=== PATIENT | male | born 1955 | race Native Hawaiian/Other Pacific Islander ===

== ENCOUNTER 2018-07-18 09:38 | Outpatient (CLI) | payer MEDICARE | END 2018-07-18 09:39 | disposition home or self-care (01) | LOC: RAD 09:38 ==

== ENCOUNTER 2018-07-26 11:21 | Inpatient (IN) | payer MEDICARE, OTHER ==
[2018-07-26 11:38] VITALS: BMI 24.9
--- NOTE | 2018-07-26 11:58 | EDPD ---
HPI Stroke - General Time Seen by Provider: 07/26/18 11:51 Chief Complaint: Weakness/Neurological Deficit Historian: Patient, Spouse () - History of Present Illness Narrative History of Present Illness (Free Text): 07/26/18 11:58 A 63 year old male, whose past medical history includes a stroke 3 1/2 years ago- on blood thinners, hypertension, and diabetes, presents to the emergency department for possible stroke with symptoms starting from 6:30 am when the patient woke up. Patient reports experiencing numbness and weakness to his entire right leg, he also states his left leg and both arm sensations are intact. Patient's states he is taking Plavix and aspirin but patient reports he did not take any medication today. Patient denies any chest pain, headache, or any other complaints. PMD: Dr. Bee Onset:: Hours (5-6 hours ago) Timing: Currently Symptomatic Context: Home Associated Symptoms: Dysarthria (mild disarthria), Numbness (numbness to the entire right leg) rTPA Inclusion/Exclusion - Refusal of Treatment Patient Refused Treatment: No - Inclusion Criteria for Altepase Patient is 18 years or Older: Yes The Clinical Diagnosis of Ischemic Stroke That is Causing a Potentially Disabl ing Neurological Deficit: Yes Time of Onset is Well Established to be Less Than 270 Minute Before Treatment Would Begin: No Risk/Benefit Discussed With Patient/Family Member Present: No Past Medical History - Provider Review Nursing Documentation Reviewed: Yes - Infectious Disease Hx of Infectious Diseases: None - Tetanus Immunization Tetanus Immunization: Unknown - Cardiac Hx Cardiac Disorders: Yes Hx Hypertension: Yes Hx Peripheral Vascular Disease: Yes Other/Comment: PAD. - Pulmonary Hx Respiratory Disorders: No - Neurological Hx Neurological Disorder: Yes HX Cerebrovascular Accident: Yes (JANUARY 2015 RIGHT SIDED WEAKNESS SLOW SPEECH) - HEENT Hx HEENT Disorder: Yes Hx Cataracts: Yes - Renal Hx Renal Disorder: Yes (RENAL INSUFFICIENCY) - Endocrine/Metabolic Hx Endocrine Disorders: Yes Hx Diabetes Mellitus Type 2: Yes - Hematological/Oncological Hx Blood Disorders: No - Integumentary Hx Dermatological Disorder: No - Musculoskeletal/Rheumatological Hx Musculoskeletal Disorders: Yes Other/Comment: back surgery 07/22/13 for "spasms". "not sure what they did" - Gastrointestinal Hx Gastrointestinal Disorders: Yes Hx Constipation: Yes - Genitourinary/Gynecological Hx Genitourinary Disorders: No - Psychiatric Hx Psychophysiologic Disorder: No Hx Substance Use: No - Surgical History Hx Tonsillectomy: Yes Other/Comment: back surgery 07/22/13 for "spasms". "not sure what they did" - Anesthesia Hx Anesthesia: Yes Hx Anesthesia Reactions: No Hx Malignant Hyperthermia: No - Suicidal Assessment Feels Threatened In Home Enviroment: No Family/Social History - Dr. Cage Nursing documentation reviewed.: Yes Allergies/Home Meds Allergies/Adverse Reactions: Allergies No Known Allergies Allergy (Verified 07/26/18 12:10) Home Medications: Home Meds Medication Instructions Recorded Confirmed Glimepiride [Amaryl] 4 mg PO DAILY 12/01/14 04/19/15 Carvedilol 6.25 mg PO BID 04/15/15 04/19/15 Clopidogrel [Plavix] 75 mg PO DAILY 04/15/15 04/19/15 Famotidine 40 mg PO DAILY 04/15/15 04/19/15 Gemfibrozil 600 mg PO BID 04/15/15 04/19/15 Insulin Detemir [Levemir] 30 units SC ACBD 04/15/15 04/19/15 Lisinopril 10 mg PO DAILY 04/15/15 04/19/15 Sitagliptin Phosphate [Januvia] 100 mg PO DAILY 04/15/15 04/19/15 Review of Systems - Physician Review All systems were reviewed & negative as marked: Yes - Review of Systems Cardiovascular: absent: Chest Pain Neurological: Other (weakness and numbness to the entire right leg). absent: Headache ED Stroke Physical Exam - Physical Exam Narrative Physical Exam (Text): 07/26/18 12:07 Gen: VS reviewed, alert, well developed, well nourished, nontoxic, mild distress, mild dysarthria (chronic form a previous stroke). ENT: normal pharynx. Eye: EOMI, PERRL. Neck: no JVD, supple, no adenopathy. CV: regular rate, regular rhythm, no rubs, no murmur, no gallops, S1, S2, pulses equal and strong. Pulm: no distress, clear to auscultation, no wheeze, no rhonchi, breath sounds equal, no rales. Abd: soft, nontender, no guarding, no rebound, no rigidity, normal bowel sounds. Ext: no edema. Skin: good color, no rash, no cyanosis. Psych: responds appropriately to questions, normal affect. Neuro: oriented x 3, CN2-12 intact grossly, motor intact, sensation and numbness to entire right leg. Vital Signs Reviewed: Yes Vital Signs Temp Pulse Resp BP Pulse Ox 07/26/18 11:21 98.3 F 102 H 18 143/86 100 Temperature: Afebrile Blood Pressure: Normal Pulse: Tachycardic Respiratory Rate: Normal Appearance: Positive for: Well-Appearing, Non-Toxic Pain Distress: None Mental Status: Positive for: Alert and Oriented X 3 Medical Decision Making ED Course and Treatment: 07/26/18 12:12 Impression: 63 year old male presenting to the emergency room for a possible stroke. Plan: -- Type and screen -- CT of Head without contrast -- EKG -- Labs -- Stroke team consult -- CBC -- COAGs -- Chest X-ray -- IV fluids -- Reassess and disposition Prior Visits: Notes and results from previous visits were reviewed. Progress Notes: 07/26/18 11:57 CODE STROKE was called. 07/26/18 12:[address] Bernstein, who agrees patient is not a thrombolasis candidate and will see patient in consultation. 07/26/18 13:11 patient failed swallow eval in the ED as per nurse. this appears to be new especially since the patient is already on a significant amount of oral medications. admit accepted by dr. bee, patient to be admitted for acute neuro deficit concerning for cva. ddx including but not limited to cva, lumbar radiculopathy with numbness howevere would be unlikley in this clinical presentation as there is a uniform numbness of the lower extremity. Arterial occlusion is also unlikely as there are good peripheral pulses, good color to the entire legs, lack of pain. - RAD Interpretation Narrative RAD Interpretations (Text): 07/26/18 12:53 Procedure: CT of Head without contrast Dictator: Julian Phillips MD Impression: No intracranial mass, hemorrhage or evidence of acute infarct. Multifocal stable encephalomalacia consistent with prior infarcts. Chronic white matter ischemic change. Findings in this examination were discussed by telephone with Dr. Valentin at 12:27 p.m. on 07/26/2018. 07/26/18 12:59 Procedure: Chest X-ray Dictator: Julian Phillips Impression: No active disease. Scrap Wheeler: Radiologist - EKG Interpretation EKG Interpretation (Text): 07/26/18 14:59 1213: nsr at 98 bpm, nml qrs, nml axis, nonspecific t wave abn Interpreted by ED Physician: Yes - Scribe Statement The provider has reviewed the documentation as recorded by the Rosa Camara All medical record entries made by the Scribe were at my direction and personally dictated by me. I have reviewed the chart and agree that the record accurately reflects my personal performance of the history, physical exam, medical decision making, and the department course for this patient. I have also personally directed, reviewed, and agree with the discharge instructions and disposition. [ NIHSS Scale ([place]) Time Performed: 13:15 - How Severe is the Stoke Baseline Level of Consciousness: 0=Alert LOC to Questions: 0=Both comments correct LOC to commands: 0=Obeys both correctly Best Gaze: 0=Normal Visual: 0=No visual loss Facial: 0=Normal Motor Arm - Left: 0=No drift Motor Arm - Right: 0=No drift Motor Leg - Left: 0=No drift Motor Leg - Right: 0=No drift Limb Ataxia: 0=Absent Sensory: 1=Mild to moderate loss Best Language: 0=No aphasia Dysarthia: 1=Mild to moderate slurring Extinction & Inattention (Neglect): 0=Normal, no object Score: 2 Risk Level: Minor Stroke Risk Disposition/Present on Arrival - Present on Arrival Any Indicators Present on Arrival: No History of DVT/PE: No History of Uncontrolled Diabetes: No Urinary Catheter: No History of Decub. Ulcer: No History Surgical Site Infection Following: None - Disposition Have Diagnosis and Disposition been Completed?: Yes Diagnosis: CVA (cerebral vascular accident) Disposition: HOSPITALIZED Disposition Time: 13:19 Patient Plan: Admission Patient Problems: Current Active Problems Problem Status Onset CVA (cerebral vascular accident) Acute Condition: GUARDED
[2018-07-26] MEDS: Sodium Chloride 0.9% 1,000 ML IV SCH ×2 (12:25→22:09)
--- NOTE | 2018-07-26 12:35 | CT ---
Date of service: 07/26/2018 PROCEDURE: CT HEAD WITHOUT CONTRAST. HISTORY: Code Stroke COMPARISON: 05/23/2018. TECHNIQUE: Axial computed tomography images were obtained through the head/brain without intravenous contrast. Radiation dose: Total exam DLP = 945.92 mGy-cm. This CT exam was performed using one or more of the following dose reduction techniques: Automated exposure control, adjustment of the mA and/or kV according to patient size, and/or use of iterative reconstruction technique. FINDINGS: HEMORRHAGE: No intracranial hemorrhage. BRAIN: No intracranial mass. Multifocal encephalomalacia consistent with old infarct. Unchanged from prior CT examination. Bilateral multifocal cerebellar, right greater than left. Bilateral occipital, right greater than left. Right temporal. Bilateral small old basal ganglia lacunar infarcts. Old right thalamic lacunar infarct. No evidence of acute infarct. Patchy deep and subcortical white matter lucency consistent with chronic microvascular ischemic change. Mild chronic periventricular white matter ischemic change. VENTRICLES: No hydrocephalus. Incidentally noted cavum septum pellucidum. CALVARIUM: Unremarkable. PARANASAL SINUSES: Unremarkable as visualized. No significant inflammatory changes. MASTOID AIR CELLS: Unremarkable as visualized. No inflammatory changes. OTHER FINDINGS: None. IMPRESSION: No intracranial mass, hemorrhage or evidence of acute infarct. Multifocal stable encephalomalacia consistent with prior infarcts. Chronic white matter ischemic change. Findings in this examination were discussed by telephone with Dr. Valentin at 12:27 p.m. on 07/26/2018.
[2018-07-26 12:36] LABS: BASO # 0.04 K/mm3 (0.0-2.0); BASO % 0.4 % (0.0-3.0); EOS # 0.2 (0.0-0.7); EOS % 2.5 % (1.5-5.0); GRAN # 6.73 (1.4-6.5); HEMOGLOBIN 15.9 g/dL (14.0-18.0); LYMPH # 1.8 (1.2-3.4); MEAN CELL VOLUME 86.5 fl (80.0-105.0); MEAN CORPUSCULAR HEMOGLOBIN 27.9 pg (25.0-35.0); MEAN CORPUSCULAR HGB CONC 32.3 g/dl (31.0-37.0); MEAN PLATELET VOLUME 10.6 fl (7.0-11.0); MONO # 0.5 (0.1-0.6); MONO % 5.1 % (1.0-6.0); RBC 5.69 10^6/uL (3.5-6.1); RED CELL DISTRIBUTION WIDTH 13.7 % (11.5-14.5); WHITE BLOOD COUNT 9.2 10^3/uL (4.5-11.0)
[2018-07-26 12:46] LABS: INR 0.97; PARTIAL THROMBOPLASTIN TIME 34.7 Seconds (25.1-36.5); PROTHROMBIN TIME 11.1 SECONDS (9.4-12.5)
[2018-07-26 12:55] LABS: ALB/GLOB RATIO 1.5 (1.1-1.8); ALBUMIN 4.6 g/dL (3.0-4.8); ALT/SGPT 24 U/L (7-56); AST/SGOT 15 U/L (17-59); BLOOD UREA NITROGEN 20 mg/dL (7-21); CALCIUM 10.4 mg/dL (8.4-10.5); GFR NON-AFRICAN AMERICAN > 60; HDL CHOLESTEROL 40 mg/dL (29-60)
--- NOTE | 2018-07-26 12:56 | RAD ---
Date of service: 07/26/2018 HISTORY: Code Stroke COMPARISON: 07/18/2018 FINDINGS: LUNGS: No active pulmonary disease. PLEURA: No significant pleural effusion identified, no pneumothorax apparent. CARDIOVASCULAR: No aortic atherosclerotic calcification present. Normal cardiac size. No pulmonary vascular congestion. OSSEOUS STRUCTURES: No significant abnormalities. VISUALIZED UPPER ABDOMEN: Normal. OTHER FINDINGS: None. IMPRESSION: No active disease.
[2018-07-26 13:02] LABS: LDL CHOLESTEROL 133 mg/dL (0-129); TROPONIN I < 0.01 ng/mL
--- NOTE | 2018-07-26 15:15 | CP.PCM.CON ---
History of Present Illness - History of Present Illness History of Present Illness: Neurology Consultation Note: Consult requested by Dr. Bee The patient is a 63-year-old man with a past medical history of previous ischemic stroke with residual speech difficulty and right side slight weakness, HTN, HLD, DM, who developed increasing numbness of the right leg that started last night. Review of Systems - Constitutional Constitutional: As Per HPI - EENT Eyes: absent: As Per HPI, Blind Spots, Blurred Vision, Change in Vision, Decreased Night Vision, Diplopia, Discharge, Dry Eye, Exophthalmos, Floaters, Irritation, Itchy Eyes, Loss of Peripheral Vision, Pain, Photophobia, Requires Corrective Lenses, Sees Flashes, Spots in Vision, Tunnel Vision, Other Visual Disturbances, Loss of Vision, Other Nose/Mouth/Throat: absent: As Per HPI, Epistaxis, Nasal Congestion, Nasal Discharge, Nasal Obstruction, Nasal Trauma, Nose Pain, Post Nasal Drip, Sinus Pain, Sinus Pressure, Bleeding Gums, Change in Voice, Dental Pain, Dry Mouth, Dysphagia, Halitosis, Hoarsness, Lip Swelling, Mouth Lesions, Mouth Pain, Odynophagia, Sore Throat, Throat Swelling, Tongue Swelling, Facial Pain, Neck Pain, Neck Mass, Other - Cardiovascular Cardiovascular: absent: As Per HPI, Acrocyanosis, Chest Pain, Chest Pain at Rest, Chest Pain with Activity, Claudication, Diaphoresis, Dyspnea, Dyspnea on Exertion, Edema, Irregular Heart Rhythm, Pain Radiating to Arm/Neck/Jaw, Leg Edema, Leg Ulcers, Lightheadedness, Orthopnea, Palpitations, Paroxysmal Nocturnal Dyspnea, Pedal Edema, Radiating Pain, Rapid Heart Rate, Slow Heart Rate, Syncope, Other - Respiratory Respiratory: absent: As Per HPI, Cough, Dyspnea, Hemoptysis, Dyspnea on Exertion, Wheezing, Snoring, Stridor, Pain on Inspiration, Chest Congestion, Excessive Mucous Production, Change in Mucous Color, Pain with Coughing, Other - Gastrointestinal Gastrointestinal: absent: As Per HPI, Abdominal Pain, Belching, Bloating, Change in Bowel Habits, Change in Stool Character, Coffee Ground Emesis, Constipation, Cramping, Diarrhea, Dyspepsia, Dysphagia, Early Satiety, Excessive Flatus, Fecal Incontinence, Heartburn, Hematemesis, Hematochezia, Loose Stools, Melena, Nausea, Odynophagia, Temesmus, Vomiting, Other - Genitourinary Genitourinary: absent: As Per HPI, Change in Urinary Stream, Difficulty Urinating, Dysuria, Flank Pain, Hematuria, Pyuria, Nocturia, Urinary Incontinence, Urinary Frequency, Urinary Hesitance, Urinary Urgency, Voiding Freq/Small Amts, Freq UTI, Hx Renal/Bladder Calculi, Hx /Renal Surgery, Bladder Distension, Other - Musculoskeletal Musculoskeletal: absent: As Per HPI, Abnormal Gait, Arthralgias, Atrophy, Back Pain, Deformity, Joint Swelling, Limited Range of Motion, Loss of Height, Muscle Cramps, Muscle Weakness, Myalgias, Neck Pain, Numbness, Radiating Pain into Limb, Stiffness, Tingling, Other - Integumentary Integumentary: absent: As Per HPI, Acne, Alopecia, Bleeding Lesions, Change in Hair, Change in Nails, Change in Pigmentation, Changing Lesions, Dry Skin, Erythema, Furuncle, Hirsutism, Lesions, New Lesions, Non-Healing Lesions, Photosensitivity, Pruritus, Rash, Skin Pain, Skin Ulcer, Sores, Striae, Swelling, Unusual Bruising, Wounds, Jaundice, Other - Neurological Neurological: absent: As Per HPI, Abnormal Gait, Abnormal Hearing, Abnormal Movements, Abnormal Speech, Behavioral Changes, Burning Sensations, Confusion, Convulsions, Disequilibrium, Dizziness, Numbness, Focal Weakness, Frequent Falls, Headaches, Lack of Coordination, Loss of Vision, Memory Loss, Paresthesias, Radicular Pain, Restless Legs, Sensory Deficit, Syncope, Tingling, Tremor, Vertigo, Weakness, Other Visual Disturbances, Other Past Patient History - Infectious Disease Hx of Infectious Diseases: None - Tetanus Immunizations Tetanus Immunization: Unknown - Past Medical History & Family History Past Medical History?: Yes - Past Social History Smoking Status: Never Smoked - CARDIAC Hx Cardiac Disorders: Yes Hx Hypertension: Yes Hx Peripheral Vascular Disease: Yes Other/Comment: PAD. - PULMONARY Hx Respiratory Disorders: No - NEUROLOGICAL Hx Neurological Disorder: Yes HX Cerebrovascular Accident: Yes (JANUARY 2015 RIGHT SIDED WEAKNESS SLOW SPEECH) - HEENT Hx HEENT Problems: Yes Hx Cataracts: Yes - RENAL Hx Chronic Kidney Disease: Yes (RENAL INSUFFICIENCY) - ENDOCRINE/METABOLIC Hx Endocrine Disorders: Yes Hx Diabetes Mellitus Type 2: Yes - HEMATOLOGICAL/ONCOLOGICAL Hx Blood Disorders: No - INTEGUMENTARY Hx Dermatological Problems: No - MUSCULOSKELETAL/RHEUMATOLOGICAL Hx Musculoskeletal Disorders: Yes Other/Comment: back surgery 07/22/13 for "spasms". "not sure what they did" - GASTROINTESTINAL Hx Gastrointestinal Disorders: Yes Hx Constipation: Yes - GENITOURINARY/GYNECOLOGICAL Hx Genitourinary Disorders: No - PSYCHIATRIC Hx Psychophysiologic Disorder: No Hx Substance Use: No - SURGICAL HISTORY Hx Tonsillectomy: Yes Other/Comment: back surgery 07/22/13 for "spasms". "not sure what they did" - ANESTHESIA Hx Anesthesia: Yes Hx Anesthesia Reactions: No Hx Malignant Hyperthermia: No Meds Allergies/Adverse Reactions: Allergies Allergy/AdvReac Type Severity Reaction Status Date / Time No Known Allergies Allergy Verified 07/26/18 12:10 - Medications Medications: Current Medications Sodium Chloride (Sodium Chloride 0.9%) 1,000 mls @ 100 mls/hr IV .Q10H MARCOS Last Admin: 07/26/18 12:25 Dose: 100 mls/hr Physical Exam - Constitutional Appears: Well - Head Exam Head Exam: ATRAUMATIC, NORMAL INSPECTION, NORMOCEPHALIC - Eye Exam Eye Exam: EOMI, Normal appearance, PERRL Pupil Exam: NORMAL ACCOMODATION, PERRL - ENT Exam ENT Exam: Mucous Membranes Moist, Normal Exam - Neck Exam Neck exam: Positive for: Normal Inspection - Respiratory Exam Respiratory Exam: Clear to Auscultation Bilateral, NORMAL BREATHING PATTERN - Cardiovascular Exam Cardiovascular Exam: REGULAR RHYTHM, +S1, +S2 - GI/Abdominal Exam GI & Abdominal Exam: Normal Bowel Sounds, Soft. absent: Tenderness - Rectal Exam Rectal Exam: Deferred - Extremities Exam Extremities exam: Positive for: normal inspection - Back Exam Back exam: NORMAL INSPECTION - Neurological Exam Neurological exam: Alert, CN II-XII Intact, Normal Gait, Oriented x3, Reflexes Normal Additional comments: Speech is dysarthric, not aphasic. CN 2-12 are intact. Right upper extremity pronator drift is subtle, but no other focal weakness. Sensation is diminished over entire RLE, but normal on the left and in B/L upper extremities. Visual tsang are intact. Coordination is intact. NIHSS=1 - Psychiatric Exam Psychiatric exam: Normal Affect, Normal Mood - Skin Skin Exam: Dry, Intact, Normal Color, Warm Results - Vital Signs Recent Vital Signs: Last Vital Signs Temp 98.3 F 07/26/18 11:21 Pulse 69 07/26/18 14:16 Resp 18 07/26/18 14:16 BP 130/66 07/26/18 14:16 Pulse Ox 98 07/26/18 14:16 - Labs Result Diagrams: 07/26/18 12:25 07/26/18 12:25 Labs: Laboratory Results - last 24 hr 07/26/18 07/26/18 07/26/18 12:25 12:25 12:25 WBC 9.2 RBC 5.69 Hgb 15.9 Hct 49.2 MCV 86.5 MCH 27.9 MCHC 32.3 RDW 13.7 Plt Count 228 MPV 10.6 Gran % 73.0 H Lymph % (Auto) 19.0 L [place] % (Auto) 5.1 Eos % (Auto) 2.5 Baso % (Auto) 0.4 Gran # 6.73 H Lymph # (Auto) 1.8 [place] # (Auto) 0.5 Eos # (Auto) 0.2 Baso # (Auto) 0.04 PT 11.1 INR 0.97 APTT 34.7 Sodium 142 Potassium 4.5 Chloride 104 Carbon Dioxide 26 Anion Gap 17 BUN 20 Creatinine 1.2 Est GFR ( Amer) > 60 Est GFR (Non-Af Amer) > 60 Random Glucose 307 H* D Calcium 10.4 Total Bilirubin 0.3 AST 15 L ALT 24 Alkaline Phosphatase 81 Troponin I < 0.01 Total Protein 7.7 Albumin 4.6 Globulin 3.0 Albumin/Globulin Ratio 1.5 Triglycerides 261 H Cholesterol 201 H LDL Cholesterol Direct 133 H HDL Cholesterol 40 Blood Type Blood Type Confirm Antibody Screen BBK History Checked 07/26/18 07/26/18 12:25 13:30 WBC RBC Hgb Hct MCV MCH MCHC RDW Plt Count MPV Gran % Lymph % (Auto) [place] % (Auto) Eos % (Auto) Baso % (Auto) Gran # Lymph # (Auto) [place] # (Auto) Eos # (Auto) Baso # (Auto) PT INR APTT Sodium Potassium Chloride Carbon Dioxide Anion Gap BUN Creatinine Est GFR ( Amer) Est GFR (Non-Af Amer) Random Glucose Calcium Total Bilirubin AST ALT Alkaline Phosphatase Troponin I Total Protein Albumin Globulin Albumin/Globulin Ratio Triglycerides Cholesterol LDL Cholesterol Direct HDL Cholesterol Blood Type O POSITIVE Blood Type Confirm O POSITIVE Antibody Screen Negative BBK History Checked No verified bt Assessment & Plan (1) CVA (cerebral vascular accident) Assessment and Plan: The patient's symptoms are very subtle and may be related to the previous stroke. However, a new acute stroke is possible. I recommend the followin. Telemetry 2. MRI brain without contrast 3. Echocardiogram 4. Check HbA1c, Lipid panel, B12, folate, TSH, homocysteine 5. Continue aspirin/plavix and obtain PRU to determine if plavix is therapeutic 6. Fluids with NS at 100 mL/hr 7. Permissive HTN (only treat BP that is higher than 220/110 mm Hg) 8. Lipitor 40 mg daily 9. PT/OT eval and treatment 10. Case management consult Thank you for this consultation. Status: Acute
[2018-07-26] MEDS ORDERED: Influenza Vaccine 60 mcg/0.5 mL SYR (4YR UP) IM ONE (16:11)
[2018-07-26] MEDS ORDERED: Pneumococcal 23-Valent Vaccine IM ONE (16:11)
[2018-07-26 16:23] LABS: URINE APPEARANCE CLEAR (CLEAR); URINE BILIRUBIN NEGATIVE (NEGATIVE); URINE BLOOD TRACE-LYSED (NEGATIVE); URINE COLOR YELLOW (YELLOW); URINE GLUCOSE (UA) 500 mg/dL (NEGATIVE); URINE LEUKOCYTE ESTERASE NEGATIVE Leu/uL (NEGATIVE); URINE PROTEIN 100 mg/dL (<30 mg/dL); URINE UROBILINOGEN 0.2 E.U./dL (<1 E.U./dL)
[2018-07-26 16:31] LABS: URINE BACTERIA NEG /hpf; URINE RBC 0 - 2 /hpf (0-2)
[2018-07-26] MEDS: Insulin Reg-LOW-Coverage SC SCH (22:09)
--- NOTE | 2018-07-27 02:49 | HP ---
DATE OF EXAM: 07/26/2018 CHIEF COMPLAINT: Weakness and neurological deficit. HISTORY OF PRESENT ILLNESS: Mr. Sandie Lemus is a 63-year-old male with past medical history of stroke three and half years ago, on blood thinner; hypertension; diabetes mellitus, uncontrolled; very noncompliant; and came to the emergency department for possibly stroke with symptoms starting from 6:30 a.m. today. When the patient woke up, the patient reports experiencing numbness and weakness to his entire right leg. He also states that his left leg and both arm sensations are intact. The patient's states that he is taking Plavix and aspirin, but the patient reports he did not take any medication today. The patient denies any chest pain, headache, or dizziness. No fever. No chills. No hematuria or hematochezia. The patient has also dysarthria, mild numbness of the entire right leg and dysphagia. We admitted the patient. Neurology consult called. According to Neurology, the patient is not a candidate of tPA. PAST MEDICAL HISTORY: Hypertension, peripheral vascular disease, right-sided weakness and slurred speech, cataract, renal insufficiency, diabetes mellitus insulin dependent not controlled, tonsillectomy, and back surgery. FAMILY HISTORY: Father and mother noncontributory. ALLERGIES: THE PATIENT IS NOT ALLERGIC WITH ANY MEDICATIONS. HOME MEDICATIONS: Amaryl, carvedilol, Plavix, famotidine, gemfibrozil, Levemir, lisinopril, and Januvia. REVIEW OF SYSTEMS: The patient was seen and examined at the bedside. Looking comfortable. cannot swallow, failed initial swallowing evaluation, numbness of the legs. No fever. No chills. No hematuria. No hematochezia. No headache. No dizziness. PHYSICAL EXAMINATION: VITAL SIGNS: Temperature 98.3, pulse 102, respiratory rate 18, blood pressure 143/86, and pulse oximetry 100. HEENT: Head; normocephalic and atraumatic. Eyes; PERRLA. Extraocular muscles intact. Conjunctivae clear. Nose patent. Mucous membrane moist. NECK: Supple. No carotid bruit, JVD, or thyromegaly. CHEST: Bilaterally symmetrical. HEART: S1 and S2 positive. LUNGS: Clear to auscultation. ABDOMEN: Soft. Bowel sounds present. No organomegaly. EXTREMITIES: No edema. No cyanosis. NEUROLOGIC: The patient is awake and alert. Obeys simple orders. LABORATORY DATA: White blood cell 9.6, hemoglobin 15.9, hematocrit 49.2, and platelets 228. Sodium 142, potassium 4.5, BUN 20, creatinine 1.2, and glucose 197. Triglyceride is 261, and LDL is 133. ASSESSMENT AND PLAN: Mr. Sandie Lemus is a 63-year-old male with uncontrolled diabetes mellitus, hypercholesterolemia, hypertriglyceridemia, proteinuria, glucosuria, hematuria, and came with numbness of the extremity. Chest x-ray done, reviewed by me. CAT scan of the head done, reviewed by me. Has previous history of ischemic stroke with residual speech difficulty and right-sided weakness, history of hypertension, and came with increasing numbness of the right leg that started last night. The patient's symptoms are very stable and may be related to the previous stroke; however, a new acute stroke is possible as per Neurology. Admitted the patient in telemetry. MRI of the brain ordered. Echocardiography needed. We will check hemoglobin A1c and homocysteine. Continue aspirin and Plavix. Continue fluids. Permissive hypertension as per Neurology. Need Lipitor, physical therapy, and occupational therapy. Gastrointestinal and deep venous thrombosis prophylaxes. Repeat labs. We will follow up. Penelope Bee MD MTDD
--- NOTE | 2018-07-27 06:11 | CARD ---
APPROVED REPORT Date of service: 07/26/2018 EKG Measurement Heart [id number] ID [id number] <Conclusion> Normal sinus rhythm Inferior infarct, age undetermined Cannot rule out Anterior infarct, age undetermined Abnormal ECG
[2018-07-27 06:55] LABS: BLOOD UREA NITROGEN 18 mg/dL (7-21); CALCIUM 9.8 mg/dL (8.4-10.5); GFR NON-AFRICAN AMERICAN > 60; HDL CHOLESTEROL 36 mg/dL (29-60)
[2018-07-27 07:03] LABS: IRON 110 ug/dL (45-180)
[2018-07-27 07:05] LABS: LDL CHOLESTEROL 122 mg/dL (0-129)
[2018-07-27 07:09] LABS: HEMOGLOBIN 14.1 g/dL (14.0-18.0); MEAN CELL VOLUME 84.9 fl (80.0-105.0); MEAN CORPUSCULAR HEMOGLOBIN 27.6 pg (25.0-35.0); MEAN CORPUSCULAR HGB CONC 32.5 g/dl (31.0-37.0); MEAN PLATELET VOLUME 10.6 fl (7.0-11.0); RBC 5.11 10^6/uL (3.5-6.1); RED CELL DISTRIBUTION WIDTH 13.8 % (11.5-14.5); WHITE BLOOD COUNT 8.7 10^3/uL (4.5-11.0)
[2018-07-27 07:12] LABS: % IRON SATURATION 38 % (20-55); TOTAL IRON BINDING CAPACITY 288 ug/dL (261-462)
[2018-07-27] MEDS: Insulin Reg-LOW-Coverage SC SCH ×4 (07:54→22:43)
[2018-07-27] MEDS: Sodium Chloride 0.9% 1,000 ML IV SCH ×3 (07:55→17:39)
[2018-07-27] MEDS: [UNRECOGNIZED DRUG - OTHER] PO SCH (09:39)
[2018-07-27 13:26] LABS: FOLATE 8.1 ng/mL
--- NOTE | 2018-07-27 16:13 | MRI ---
Date of service: 07/27/2018 PROCEDURE: MRI BRAIN WITHOUT CONTRAST HISTORY: Stroke. COMPARISON: Comparison made with CT scan brain 07/26/2018 TECHNIQUE: Multiplanar, multisequence MR images of the brain were obtained without intravenous contrast enhancement. FINDINGS: HEMORRHAGE: Current study reveals no acute parenchymal, subarachnoid nor extra-axial hemorrhage. No evidence of hemosiderin deposition identified on gradient echo weighted sequence. DWI: There are scattered small acute/subacute infarcts seen in the left posterior subinsular region, left anterior and posterior periventricular white matter as well as adjacent to the right aspect of the splenium of the corpus callosum and right occipital pole. Given the multiple bilateral vascular territory involvement, possibility of a shower of emboli must be considered. Transesophageal echocardiogram may be prudent for further evaluation.. There is a chronic right BRAIN PARENCHYMA: Moderately large chronic right [employer] territory infarct which involves the right temporal, right posterior temporal and occipital parietal watershed zone. Smaller chronic infarct left occipital pole in addition, there are moderate diffuse/confluent chronic white matter ischemic changes with numerous chronic appearing infarcts scattered about the deep and subcortical white matter as well as both basal nuclei and both cerebellar hemispheres. Moderate diffuse significant generalized volume loss VENTRICLES: No obstructive hydrocephalus. CRANIUM: Calvarium appears unremarkable. ORBITS: Changes of bilateral cataract surgery. PARANASAL SINUSES/MASTOIDS: There is a small of polypoid like mucosal thickening and/or mucous retention cyst left maxillary antrum focus VASCULAR SYSTEM: Visualized major vascular flow voids at skull base patent. OTHER FINDINGS: None. IMPRESSION: There are scattered bilateral small acute-subacute infarct changes as detailed above. Findings suggest a shower of emboli. Consider follow-up transesophageal echocardiogram. Chronic right D[employer]ATOR territory infarct with infarct changes scattered throughout both cerebellar hemispheres right greater than left as well with small chronic infarct left occipital pole. Mild periventricular white matter ischemic changes with multiple chronic infarcts scattered about the deep and subcortical white matter as well as both basal nuclei. Moderate to significant generalized volume loss. These findings discussed with 2 Tawanda Galvan at approximately 3:55 p.m. with written down and read back verification.
--- NOTE | 2018-07-28 08:51 | PN ---
DATE: 07/27/2018 SUBJECTIVE: The patient was seen and examined at the bedside on 07/27/2018. When I saw the patient late evening, he was sleepy and as per nursing staff, there was De Jesus code, because the patient was trying to leave the hospital. He said he wanted to go home. As per family conversation, the patient is a heavy smoker, may be going through withdrawals of that smoking. Then, a nicotine patch given, but still patient was restless. Then, during De Jesus code, Ativan 1 mg was given. When I saw the patient, he was a bit lethargic. Psych consult is on the case. Meanwhile, continue present treatment. No fever. No chills. No hematuria or hematochezia. No headache. No dizziness. PHYSICAL EXAMINATION: VITAL SIGNS: Temperature 98.2, pulse 102, respirations 117/71, respiratory rate 18. HEENT: Head: Normocephalic, atraumatic. Eyes: PERRLA. Extraocular muscles intact. Conjunctivae clear. Nose patent. Mucous membranes are moist. NECK: Supple. No carotid bruits. No thyromegaly. CHEST: Bilaterally symmetrical. HEART: S1 and S2 positive. LUNGS: Clear to auscultation. ABDOMEN: Soft. Bowel sounds present. No organomegaly. EXTREMITIES: No edema. No cyanosis. NEUROLOGIC: The patient is awake and alert. Moving all four extremities. No focal deficit. MEDICATIONS: Ecotrin, Flomax, glucagon, insulin, Lipitor, NicoDerm, Pepcid, Plavix, NS. LABORATORY DATA: White blood cell 6.7, hemoglobin 14.1, hematocrit 43.3, platelets 224, glucose 293, hemoglobin A1c is 9.9. TSH 5.83. ASSESSMENT AND PLAN: The patient is a 63-year-old male with uncontrolled diabetes mellitus, hemoglobin A1c is 9, homocysteine 18.2 with proteinuria, glucosuria, hematuria, went for magnetic resonance imaging of the brain. According to Dr. Martin Torres, there are scattered bilateral small acute, subacute infarct changes as findings suggesting of shower of emboli, consider for transesophageal echocardiography, chronic right posterior cerebral artery territory infarct with infarcted changes scattered throughout both cerebral hemispheres, right greater than the left as well with small chronic infarct, left occipital pool, mild periventricular white matter ischemic changes with multiple chronic infarct scattered about the deep and subcortical white matter as well as both basal nuclei. Moderate to significant volume loss. Neurology is on the case. We will call Cardiology consult for transesophageal echocardiography. The patient is a heavy smoker. Nicotine patch given, urged to quit smoking. Hypertension, peripheral vascular disease, esophageal weakness, slurring speech, cataract surgery, renal insufficiency, diabetes mellitus, tonsillectomy. Repeat labs. Psychiatry is on the case because of the patient's depression. Physical therapy. We will follow up. Penelope Bee MD MTDAr
[2018-07-28] MEDS: Insulin Reg-LOW-Coverage SC SCH ×3 (10:07→17:56)
[2018-07-28] MEDS: [UNRECOGNIZED DRUG - OTHER] PO SCH (10:08)
--- NOTE | 2018-07-28 13:33 | CARD ---
APPROVED REPORT Date of service: 07/28/2018 EXAM: Two-dimensional and M-mode echocardiogram with Doppler and color Doppler. 2D DIMENSIONS Left Atrium (2D)3.2 (1.6-4.0cm) M-Mode DIMENSIONS Aortic Root3.20 (2.2-3.7cm)Aortic Cusp Exc.1.40 (1.5-2.0cm) Aortic Valve AoV Peak Gxhbxyos503.0cm/Harper Peak GR.7mmHg Mitral Valve MV E Hopjwmxi15.6cm/sMV A Rkgbmuwd63.3cm/sE/A ratio0.6 TDI E/Lateral E'0.0E/Medial E'0.0 Tricuspid Valve TR Peak Rwoqwiix477ot/sRAP ASRUESZF46yxNzID Peak Gr.5mmHg [id number] LEFT VENTRICLE The left ventricle is normal size. There is borderline to mild concentric left ventricular hypertrophy. Left ventricle systolic function is low normal.EF-50-55% There is normal LV segmental wall motion. Transmitral Doppler flow pattern is Grade III-reversible restrictive diastolic dysfunction. No left ventricle thrombus noted on this study. There is no ventricular septal defect visualized. There is no left ventricular aneurysm. There is no mass noted in the left ventricle. RIGHT VENTRICLE The right ventricle is normal size. There is normal right ventricular wall thickness. The right ventricular systolic function is normal. ATRIA The left atrium size is normal. The right atrium size is normal. The interatrial septum is intact with no evidence for an atrial septal defect.by color flow and bubble study. AORTIC VALVE The aortic valve is thickened but opens well. Trivial AR There is no aortic valvular stenosis. There is no aortic valvular vegetation. MITRAL VALVE The mitral valve is thickened but opens well. Mitral regurgitation is trace. There is no mitral valve stenosis. There is no evidence of mitral valve prolapse. TRICUSPID VALVE The tricuspid valve is normal in structure. Trivial TR, RVSP-15 mmof Hg. There is no tricuspid valve stenosis. There is no tricuspid valve prolapse or vegetation. PULMONIC VALVE The pulmonic valve is not well visualized. GREAT VESSELS The aortic root is normal in size. The pulmonary artery is normal. The IVC is normal in size and collapses >50% with inspiration. PERICARDIAL EFFUSION There is no pleural effusion. There is no pericardial effusion. <Conclusion> Normal Chamber Size. EF-50-55%. Trivial AR/TR Trace MR RVSP-15 mmof Hg. No thrombus or vegetation noted. The interatrial septum is intact with no evidence for an atrial septal defect.by color flow and bubble study.
--- NOTE | 2018-07-28 17:41 | CP.PCM.PN ---
Subjective - Date & Time of Evaluation Date of Evaluation: 07/28/18 Time of Evaluation: 17:41 - Subjective Subjective: Neurology Progress Note: Patient seen and assessed at bedside. Patient was sedated and placed in medical restraints due to agitation overnight. Patient currently uncooperative with ROS questioning. Objective - Vital Signs/Intake and Output Vital Signs (last 24 hours): Temp Pulse Resp BP Pulse Ox 97.9 F 78 20 152/99 H 100 07/28/18 12:00 07/28/18 14:00 07/28/18 12:00 07/28/18 12:00 07/27/18 06:00 Intake and Output: 07/28/18 07/28/18 06:59 18:59 Intake Total 0 Output Total 0 Balance 0 - Medications Medications: Current Medications Apixaban (Eliquis) 5 mg PO BID [facility]; Protocol Aspirin (Ecotrin) 81 mg PO DAILY [facility] Last Admin: 07/28/18 10:08 Dose: 81 mg Atorvastatin Calcium (Lipitor) 40 mg PO DIN [facility] Last Admin: 07/27/18 17:43 Dose: 40 mg Famotidine (Pepcid) 40 mg PO HS [facility] Last Admin: 07/27/18 21:29 Dose: 40 mg Sodium Chloride (Sodium Chloride 0.9%) 1,000 mls @ 100 mls/hr IV .Q10H [facility] Last Admin: 07/27/18 17:39 Dose: Not Given Insulin Human Regular (Humulin R Low) 0 units SC ACHS [facility]; Protocol Last Admin: 07/28/18 13:13 Dose: 1 units Levothyroxine Sodium (Synthroid) 25 mcg PO 0600 [facility] Lorazepam (Ativan) 0.25 mg IVP Q6H PRN; Protocol PRN Reason: Anxiety Last Admin: 07/28/18 03:20 Dose: 0.25 mg Metformin HCl (Glucophage) 1,000 mg PO BID [facility] Last Admin: 07/28/18 10:07 Dose: 1,000 mg Nicotine (Nicoderm Cq) 1 patch TD DAILY [facility] Last Admin: 07/28/18 10:06 Dose: 1 patch Fluticasone/Vilanterol 100/25 [ Breo Ellipta 100-25 Mcg Inh] 1 Pu 1 puff PO DAILY [facility] Last Admin: 07/28/18 10:08 Dose: 1 puff Quetiapine Fumarate (Seroquel) 12.5 mg PO Q12 PRN; Protocol PRN Reason: Agitation Last Admin: 07/28/18 10:07 Dose: 12.5 mg Tamsulosin HCl (Flomax) 0.4 mg PO DAILY [facility] Last Admin: 07/28/18 10:07 Dose: 0.4 mg - Labs Labs: 07/27/18 05:00 07/27/18 05:00 PT 11.1 SECONDS (9.4-12.5) 07/26/18 12:25 INR 0.97 07/26/18 12:25 APTT 34.7 Seconds (25.1-36.5) 07/26/18 12:25 - Constitutional Appears: Confused - Head Exam Head Exam: ATRAUMATIC, NORMOCEPHALIC - Eye Exam Eye Exam: EOMI, PERRL - Neck Exam Neck Exam: Full ROM - Respiratory Exam Respiratory Exam: Clear to Ausculation Bilateral, NORMAL BREATHING PATTERN - Cardiovascular Exam Cardiovascular Exam: REGULAR RHYTHM - GI/Abdominal Exam GI & Abdominal Exam: Soft, Normal Bowel Sounds. absent: Tenderness - Neurological Exam Neurological Exam: Altered. absent: Alert, Awake, Oriented x3 Additional comments: Patient sedated, restrained and uncooperative with neurological examination Assessment and Plan - Assessment and Plan (Free Text) Assessment: 63 year old male with a past medical history significant for previous ischemic CVA with residual speech difficulty/right sided weakness, HTN, HLD, and DM2 who presented with right leg numbness. Plan: -MRI Brain without contrast showed scattered acute to subacute infarcts consistent with embolic source and chronic large infarction in the territory of the right PIER MASTER -2D Echocardiogram showed no thrombus or vegetation and intact intra-atrial septum -PRU subtherapeutic; Discontinue Plavix -Start Eliquis 5mg PO BID -Continue ASA and Statin -Continue PT/OT -Further recommendations as per Dr. Bernstein Patient seen and case discussed with attending, Dr. Bernstein. Watson Adam PGY2
--- NOTE | 2018-07-28 18:57 | CON ---
DATE: 07/28/2018 HISTORY OF PRESENT ILLNESS: The patient is a 63-year-old male with recorded psychiatric history in the [employer], who has a relevant medical history of a stroke in 01/2015, which left him with right-sided weakness, slurred, and dysarthric speech without aphasia, who presents to the ER for possible new onset stroke related symptoms. The patient was admitted to rule out another stroke; however, he was on the medical floor. His orientation and cooperation appeared to worsen when notes were reviewed from his time in the ER to present time. The patient was alert and oriented x3 with slurred speech, but understands above. He was able to cooperate and communicate in a conversation, verbal, later he was notably more confused, agitated, less oriented, restless, and difficult to manage. He is getting out of the bed and trying to wander the hallways and was not responsive to much verbal redirection. The patient to be called for his own safety. Psychiatrist consulted for his behavioral issues. I met with the patient at bedside this morning one-to-one interview. The patient could not provide for me the correct month and year, but the patient's focus is very poor and inconsistent as the patient was actually disoriented and confused. He does not appear to be hallucinating, but he absolutely restless, preoccupied and distracted. He also did not appear to comprehend this provide when I was reviewing his current circumstances with him and trying to orient him to his location or when I request his cooperation with the treatment team. The patient has been refusing nursing request and he does not appear that he comprehends what requested for and in regards he does not have capacity. He consistently requests things and then refuses them. The patient is ultimately for his risk, which requested when I visited with him. Vital signs and labs were reviewed. The patient is not on any psychiatric medications at this time. Of note, the MRI of the brain indicate areas of new infarcts. IMPRESSION: The patient with behavioral issues and it is unclear whether current interventional mental status is related to progression of his stroke or sequelae of the stroke. RECOMMENDATIONS: This provider has to conservative with medications, then conversant to inhibition. I will provide a very low-dose of Seroquel 12.5 mg, which should help with his restlessness. It should be given every 8 hours on p.r.n. basis. Psychiatry will continue to follow up and monitor his tolerance and mental status and behaviors. Maria C Huerta MD
--- NOTE | 2018-07-28 20:06 | CON ---
DATE: 07/28/2018 REASON FOR CONSULTATION: Cardiac evaluation, admitted with possible stroke CVA. BRIEF CLINICAL HISTORY: This is 63-year-old male with past medical history significant for diabetes, hypertension, history of CVA, 3 years ago, brought by the that patient started experience weakness of the entire right leg and numbness. Though, the patient is currently very much confused information obtained from the chart. The patient was at home aspirin and Plavix a day prior to coming yesterday. The patient did not take any aspirin and Plavix. The patient currently in two-point of strain asked the night nurse, the patient says that the night nurse, the patient still confused and does not follow the command. The patient keep on trying to sit up and get out of the bed, and then try to leave back as patient's two-point very much confused, unable to give any information himself. PAST MEDICAL HISTORY: As in the electronic medical record information, history of diabetes, hypertension, hyperlipidemia, history of stroke 3.5 years ago since then patient was on aspirin and Plavix. History of peripheral arterial disease, history of right-sided weakness and slurred speech, history of cataract, history of renal insufficiency and history of type 2 diabetes. PAST SURGICAL HISTORY: Significant for tonsillectomy and back surgery as recommended in the chart. FAMILY HISTORY: Father and mother is noncontributory. ALLERGIES: NO KNOWN DRUG ALLERGY. CURRENT MEDICATIONS: At home, the patient was taking Amaryl, Coreg, Plavix, levothyroxine 0.05 mg daily, glipizide 10 mg daily, Pepcid 45 mg daily, atorvastatin 80 mg daily, Januvia 100 mg daily, Singulair, lisinopril, lidocaine, Plavix 75 mg daily, Flomax 0.4 mg daily, Ditropan, metformin and Flonase. REVIEW OF SYSTEMS: As per HPI. PHYSICAL EXAMINATION: GENERAL: Height of the patient 5 feet 6 inches. Weight of the patient 150 pounds. Body mass index 25 kg/m2. VITAL SIGNS: Rest of the vitals temperature afebrile, heart rate 82 and blood pressure 117/71. HEENT: PERRLA. Extraocular muscles intact. NECK: Supple. No carotid bruit or thyromegaly. CHEST: Clear to auscultation. HEART: S1 and S2, regular. ABDOMEN: Soft. EXTREMITIES: Clubbing and cyanosis negative. LABORATORY DATA: EKG showed normal sinus inferior wall NE of undetermined age at the rate of 98, cannot rule out inferior wall NE for undetermined age at the rate of 98. Rest of the blood workup, WBC 8.7, hemoglobin 14.0, hematocrit 43.4 and platelet count 224. Chemistry shows sodium 139, potassium 4, chloride 106, carbon dioxide 24, anion gap , creatinine 1.1, total cholesterol 175, LDL 122, HDL 36, random blood sugar 206, hemoglobin A1c 9 and TSH 5.83. IMPRESSION: Poorly controlled diabetes manifested by hemoglobin A1c, hypothyroid, hyperlipidemia, history of cerebrovascular accident admitted with stroke. Brain MRI, CAT scan was negative for acute intracerebellar bleed, scattered bilateral subacute infarct changes detailed as above, chronic PCI territory infarct changes scattered throughout both of the cerebellar hemisphere. RECOMMENDATION: I will control diabetes, hypertension, hyperlipidemia. I will start levothyroxine, get echo with bubble study, rule out any patent foramen ovale. Resume back aspirin and Plavix. We will get more information when the patient became sober. We will follow with you. Thank you Dr. Bee for providing us the opportunity in taking care of the patient, Mariah Hooper. For risk stratification, EKG suggest also a stress test 6 to 8 weeks when the acute symptoms of a stroke subside. Sri Farr MD
[2018-07-29] MEDS ORDERED: Levothyroxine 25 MCG TAB PO SCH (06:00)
--- NOTE | 2018-07-29 08:19 | PN ---
DATE: 07/28/2018 SUBJECTIVE: The patient is a 63-year-old . The patient was seen and examined at the bedside on 07/28/2018. The patient is little bit sleepy, having a soft wrist restraint because of his falling. No fevers. No chills. No hematuria or hematochezia. No headaches. No dizziness. No chest pain. No palpitations. PHYSICAL EXAMINATION: VITAL SIGNS: Temperature 97.9, pulse 78, respiratory rate 20, blood pressure 150/99, and pulse oximetry 100. HEENT: Head; normocephalic and atraumatic. Eyes; PERRLA. Extraocular muscles are intact. Conjunctivae clear. Nose patent. Mucous membranes moist. NECK: Supple. No carotid bruits. No JVD or thyromegaly. CHEST: Bilaterally symmetrical. HEART: S1 and S2 positive. LUNGS: Clear to auscultation. ABDOMEN: Soft. Bowel sounds present. No organomegaly. EXTREMITIES: No edema. No cyanosis. NEUROLOGIC: The patient is sleepy, arousable, and answering simple questions. LABORATORY DATA: White blood cells 8.7, hemoglobin 14.1, hematocrit 43.3, and platelets 224. Sodium 139, potassium 4, BUN 18, creatinine 1.1, and glucose 206. MEDICATIONS: Eliquis, aspirin, atorvastatin, Pepcid, NS, insulin, Synthroid, Ativan, metformin, Nicoderm patch, fluticasone, Seroquel, and Flomax. ASSESSMENT AND PLAN: a 63-year-old male with past medical history of ischemic stroke with residual speech difficulty; right-sided weakness; noncompliance; insulin-dependent diabetes mellitus type 2, not controlled; hypercholesterolemia; hypertension; still actively smoking; now started on nicotine patch, came with right leg numbness. Neurology consult called with Dr. Norman Bernstein, he saw the patient. CAT scan of the head done. MRI done. Consult called with Dr. Farr also. He did the echocardiography with bubble studies, reviewed by me. Psychiatry is on the case because of the patient's anxiety, started Seroquel. Gastrointestinal and deep venous thrombosis prophylaxes. Repeat labs. We will follow up. Penelope Bee MD MTDD
[2018-07-29] MEDS: Insulin Reg-LOW-Coverage SC SCH ×4 (09:45→21:49)
--- NOTE | 2018-07-29 10:28 | PN ---
DATE: 07/29/2018 REASON FOR CONSULTATION: Cardiac evaluation admitted with a possible stroke. SUBJECTIVE: The patient denies any chest pain, shortness of breath, or any palpitation. OBJECTIVE: GENERAL: The patient is still slow, but responds to verbal stimuli. The speech is still slurred, on two-point Jethro restraint. The patient knows that he is in [facility] and responds that he smokes half a pack for many years. He denies any chest pain. VITAL SIGNS: Temperature afebrile, heart rate of 95, blood pressure 126/82. HEENT: PERRLA. Extraocular muscles are intact. NECK: Supple. No carotid bruits or thyromegaly. CHEST: Clear to auscultation. HEART: S1 and S2 regular. ABDOMEN: Soft. EXTREMITIES: Clubbing and cyanosis negative. LABORATORY DATA: WBC 8.6, hemoglobin 41, hematocrit 43.4, and platelet count 224. Chemistry shows sodium 139, potassium 4, chloride 106, anion gap of 12, BUN 18, creatinine 1.1. TSH 5.83 as of yesterday, total cholesterol is 172, LDL 122, HDL 36. The patient had echocardiography done yesterday that revealed ejection fraction 50% to 55%, trivial AR, TR, trace mitral regurgitation, RV systolic pressure of 15. No thrombus or vegetation noted. The intraatrial septum is intact with no evidence of an atrial septal defect by color flow or bubble study. IMPRESSION: A 63-year-old male with past medical history of diabetes, hypertension, hyperlipidemia, admitted with possible stroke. CAT scan was negative for intracerebellar bleed, but history of cerebrovascular accident in the past. Brain MRI showed scattered bilateral subacute infarct changes as above, chronic right posterior cerebral artery territory, which is infarct scattered throughout both cerebellar hemispheres, right greater than the left, which is small chronic infarct, left occipital lobe, also thyroid-stimulating hormone is elevated. RECOMMENDATIONS: Start low dose of thyroxine. Continue anticoagulation as per neurologist's recommendation. Continue rehab. Continue metoprolol. Consider stress test at 6 to 8 weeks when the symptoms of acute strokes subside for risk stratification. A bubble study echo was negative for ASG or PFO. For risk stratification as mentioned, suggest stress test in 6 to 8 when the symptoms of acute strokes subside. Interim as mentioned. Continue Eliquis. Continue atorvastatin. Continue levothyroxine. Needs excessive control of blood pressure, diabetes as well as cholesterol. Thank you Dr. Bee for providing opportunity for us in taking care of the patient, Sandie Lemus. Sri Farr MD
--- NOTE | 2018-07-29 12:20 | CP.PCM.PN ---
<Watson Adam - Last Filed: 07/29/18 12:13> Subjective - Date & Time of Evaluation Date of Evaluation: 07/29/18 Time of Evaluation: 12:13 - Subjective Subjective: Neurology Progress Note: Patient seen and assessed at bedside. Patient was noted to be agitated overnight requiring medical restraints. This was resolved early this AM and patient was no longer in restraints during this examination. Patient is lethargic but oriented to person, place, time and event. He denies any complaints at this time and further 12 point ROS unremarkable. Objective - Vital Signs/Intake and Output Vital Signs (last 24 hours): Temp Pulse Resp BP Pulse Ox 97.7 F 95 H 20 136/82 96 07/29/18 06:00 07/29/18 06:00 07/29/18 06:00 07/29/18 09:46 07/29/18 06:00 Intake and Output: 07/29/18 07/29/18 06:59 18:59 Intake Total 720 Balance 720 - Medications Medications: Current Medications Apixaban (Eliquis) 5 mg PO BID [facility]; Protocol Last Admin: 07/29/18 09:46 Dose: 5 mg Aspirin (Ecotrin) 81 mg PO DAILY [facility] Last Admin: 07/29/18 09:45 Dose: 81 mg Atorvastatin Calcium (Lipitor) 40 mg PO DIN [facility] Last Admin: 07/28/18 17:57 Dose: 40 mg Famotidine (Pepcid) 40 mg PO HS [facility] Last Admin: 07/28/18 22:21 Dose: Not Given Insulin Human Regular (Humulin R Low) 0 units SC ACHS [facility]; Protocol Last Admin: 07/29/18 09:45 Dose: 2 units Levothyroxine Sodium (Synthroid) 50 mcg PO 0600 [facility] Lorazepam (Ativan) 0.25 mg IVP Q6H PRN; Protocol PRN Reason: Anxiety Last Admin: 07/28/18 03:20 Dose: 0.25 mg Metformin HCl (Glucophage) 1,000 mg PO BID [facility] Last Admin: 07/29/18 09:45 Dose: 1,000 mg Metoprolol Tartrate (Lopressor) 50 mg PO BID [facility] Last Admin: 07/29/18 09:46 Dose: 50 mg Nicotine (Nicoderm Cq) 1 patch TD DAILY [facility] Last Admin: 07/29/18 09:46 Dose: 1 patch Fluticasone/Vilanterol 100/25 [ Breo Ellipta 100-25 Mcg Inh] 1 Pu 1 puff PO DAILY [facility] Last Admin: 07/28/18 10:08 Dose: 1 puff Quetiapine Fumarate (Seroquel) 12.5 mg PO Q12 PRN; Protocol PRN Reason: Agitation Last Admin: 07/28/18 10:07 Dose: 12.5 mg Tamsulosin HCl (Flomax) 0.4 mg PO DAILY [facility] Last Admin: 07/29/18 09:45 Dose: 0.4 mg - Labs Labs: 07/27/18 05:00 07/27/18 05:00 PT 11.1 SECONDS (9.4-12.5) 07/26/18 12:25 INR 0.97 07/26/18 12:25 APTT 34.7 Seconds (25.1-36.5) 07/26/18 12:25 - Constitutional Appears: Chronically Ill - Head Exam Head Exam: ATRAUMATIC, NORMOCEPHALIC - Eye Exam Eye Exam: EOMI, Normal appearance, PERRL Pupil Exam: NORMAL ACCOMODATION - Neck Exam Neck Exam: Full ROM - Respiratory Exam Respiratory Exam: Clear to Ausculation Bilateral, NORMAL BREATHING PATTERN - Cardiovascular Exam Cardiovascular Exam: REGULAR RHYTHM - GI/Abdominal Exam GI & Abdominal Exam: Soft, Normal Bowel Sounds. absent: Tenderness - Neurological Exam Neurological Exam: Awake, CN II-XII Intact, Oriented x3, Reflexes Normal. 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 Bernstein Patient seen and case discussed with attending, Dr. Bernstein. Watson Adam PGY2 <Norman Bernstein - Last Filed: 07/31/18 16:50> Objective - Vital Signs/Intake and Output Vital Signs (last 24 hours): Temp Pulse Resp BP Pulse Ox 98.2 F 86 18 124/75 97 07/31/18 12:50 07/31/18 12:50 07/31/18 12:50 07/31/18 12:50 07/31/18 06:00 Intake and Output: 07/31/18 07/31/18 06:59 18:59 Intake Total 120 Output Total 1 Balance 119 - Medications Medications: Current Medications Apixaban (Eliquis) 5 mg PO BID [facility]; Protocol Aspirin (Ecotrin) 81 mg PO DAILY [facility] Last Admin: 07/31/18 10:00 Dose: 81 mg Atorvastatin Calcium (Lipitor) 40 mg PO DIN [facility] Last Admin: 07/30/18 17:46 Dose: 40 mg Budesonide (Pulmicort Respules) 0.5 mg IH [id number] [facility] Last Admin: 07/31/18 13:38 Dose: 0.5 mg Famotidine (Pepcid) 40 mg PO HS [facility] Last Admin: 07/30/18 22:51 Dose: Not Given Insulin Human Regular (Humulin R Low) 0 units SC ACHS [facility]; Protocol Last Admin: 07/31/18 12:28 Dose: 5 units Levalbuterol HCl (Xopenex) 0.63 mg IH TIDRESP [facility] Last Admin: 07/31/18 13:38 Dose: 0.63 mg Levothyroxine Sodium (Synthroid) 50 mcg PO 0600 [facility] Last Admin: 07/31/18 05:04 Dose: 50 mcg Lorazepam (Ativan) 0.25 mg IVP ONCE PRN; Protocol PRN Reason: Anxiety Metformin HCl (Glucophage) 1,000 mg PO BID [facility] Last Admin: 07/31/18 09:59 Dose: 1,000 mg Metoprolol Tartrate (Lopressor) 50 mg PO BID [facility] Last Admin: 07/31/18 10:00 Dose: 50 mg Nicotine (Nicoderm Cq) 1 patch TD DAILY [facility] Last Admin: 07/31/18 09:59 Dose: 1 patch Fluticasone/Vilanterol 100/25 [ Breo Ellipta 100-25 Mcg Inh] 1 Pu 1 puff PO DAILY [facility] Last Admin: 07/30/18 10:00 Dose: Not Given Tamsulosin HCl (Flomax) 0.4 mg PO DAILY [facility] Last Admin: 07/31/18 10:00 Dose: 0.4 mg - Labs Labs: 07/27/18 05:00 07/27/18 05:00 PT 11.1 SECONDS (9.4-12.5) 07/26/18 12:25 INR 0.97 07/26/18 12:25 APTT 34.7 Seconds (25.1-36.5) 07/26/18 12:25 Assessment and Plan (1) CVA (cerebral vascular accident) Status: Acute Attending/Attestation - Attestation I have personally seen and examined this patient.: Yes I have fully participated in the care of the patient.: Yes I have reviewed all pertinent clinical information, including history, physical exam and plan: Yes Notes (Text): I agree with the assessment and plan: -Continue Eliquis 5mg PO BID -Continue ASA and Statin -Continue PT/OT -Would recommend LINQ Monitor to r/o arrhythmia and SIMON evaluation
[2018-07-29] MEDS: [UNRECOGNIZED DRUG - OTHER] PO SCH (12:36)
[2018-07-29] MEDS: Levalbuterol 0.63 MG/3 ML Inhal Soln UD IH SCH ×2 (13:45→19:37)
--- NOTE | 2018-07-29 15:01 | CON ---
DATE: 07/29/2018 PULMONARY CONSULTATION NOTE REFERRING PHYSICIAN: Penelope Bee MD REASON FOR CONSULTATION: COPD. HISTORY OF PRESENT ILLNESS: This is a 63-year-old male with past medical history of stroke three and a half years ago, on blood thinners, has history of hypertension, diabetes mellitus. The patient came to the emergency department for possible stroke, reporting symptoms of numbness and weakness to entire right leg at home. The patient was on Plavix and aspirin. Seen by Neurology, the patient was not a candidate for TPA. Today, the patient reports stuffy nose, denies any coughing or shortness of breath. PAST MEDICAL HISTORY: Hypertension, peripheral vascular disease, right-sided weakness, slurred speech, cataracts, renal insufficiency, diabetes mellitus insulin-dependent uncontrolled, tonsillectomy, back surgery. FAMILY HISTORY: No cardiopulmonary disease reported. ALLERGIES: NO KNOWN DRUG ALLERGIES. SOCIAL HISTORY: Reports being a smoker, half a pack a day for the past 40 years. No EtOH abuse. No illicit drug use. MEDICATIONS: Eliquis 5 mg twice a day, aspirin 81 mg daily, Lipitor 40 mg at dinner, Pepcid 40 mg at bedtime, Humulin R sliding scale a.c. and at bedtime, Synthroid 50 mcg daily, Ativan 0.25 mg every 6 hours p.r.n. Glucophage 1000 mL twice a day, metoprolol tartrate 50 mg twice a day, nicotine patch transdermally daily, Breo one puff daily, Seroquel 12.5 mg every 12 hours p.r.n. and Flomax 0.4 mg daily. REVIEW OF SYSTEMS: No headache, rhinitis, cough, shortness of breath, chest pain, abdominal pain, nausea, vomiting, diarrhea, leg pain or leg swelling reported. The patient does have right side weakness. Reports having stuffy nose. PHYSICAL EXAMINATION GENERAL: No acute distress. VITAL SIGNS: Blood pressure 126/82, pulse 89, temperature 97.7, oxygen saturation 96% on room air. HEENT: Moist mucous membranes. Mallampati score of 4. Crowded airway. no sinus tenderness. NECK: Supple. No JVD. RESPIRATORY: Few rhonchi bilaterally. CARDIOVASCULAR: S1 and S2 audible. ABDOMEN: Soft and nontender. No distention. No organomegaly. EXTREMITIES: No bilateral lower extremity edema. NEUROLOGIC: Awake, alert, verbal and slurred speech. Follows commands. LABORATORY DATA: Reviewed. POC glucose 288. Urine culture final no growth. Chest x-ray shows no active disease. Head CT shows no intracranial mass hemorrhage or evidence of acute infarct, multifocal stable encephalomalacia consistent with prior infracts, chronic white matter ischemic changes. Brain MRI shows scattered bilateral small subacute infract changes, chronic right infract changes scattered throughout both cerebellar hemispheres, right greater than the left as well with small chronic infarct, left occipital pole. Echocardiogram shows ejection fraction of 50% to 55% trivial AR/TR, trace MR, RVSP 15. No thrombus or vegetation. No evidence of atrial septal defect. IMPRESSION AND PLAN: Previous ischemic cerebrovascular accident with residual speech difficulty; right-sided weakness; hypertension, hyperlipidemia, diabetes, presently with right leg numbness, history of smoking, has component of chronic lung disease, rule out obstructive sleep apnea. Continue anticoagulation/antiplatelet per Neurology team. Head of bed elevated at 45 degrees. Sleep apnea precaution. We will add inhaled bronchodilator, gastric prophylaxis. The patient will need attended sleep study and full PFT as outpatient. This patient was seen and examined with Dr. Valdez. Discussed assessment and plan as described above. Thank you for this consult. We will follow with you. Kaleb Chambers APN Sri Valdez MD MTDAr
--- NOTE | 2018-07-29 17:11 | PN ---
DATE: 07/29/2018 SUBJECTIVE: The patient is a 63-year-old male with reported history of strokes. The patient was admitted on the medical side to rule out any stroke. Psych consultation was called for evaluation of agitation and restless as well as confusion. The patient was seen by Dr. Huerta on 07/28/2018. Back down, the patient presented to be confused, disoriented, and restless. Dr. Huerta recommended Seroquel 12.5 mg every 8 hours as needed. The patient was seen today. The patient presented much better to compare with description Dr. Huerta made yesterday. The patient was alert. The patient knows that he is in the hospital. The patient is aware that the reason for his admission was new stroke. The patient reported that he is feeling fine today. The patient denied feeling depressed. The patient denied thoughts of harming himself or others. Denied intent or plan. The patient denied any type of hallucinations. As per nursing staff, the patient is calm and cooperative with much improvement with his mental status. PHYSICAL EXAMINATION: VITAL SIGNS: Reviewed. Temperature 98.9, pulse 69, blood pressure: 125/79, respirations 26, and saturations 97. LABORATORY DATA: Labs reviewed. Most recent was from 07/27/2018. Coagulation reviewed. Chemistry reviewed. Urinalysis reviewed. MEDICATIONS: Medications reviewed. Aspirin, Lipitor, Pulmicort, Pepcid, insulin. The patient also is on Glucophage, Lopressor, Nicoderm. The patient is on Ellipta, Seroquel as well as Flomax. MENTAL STATUS EXAM: The patient was alert. The patient knows that he is in the hospital. The patient does not know what hospital he is in. The patient seems to have improvement of his mental status. Mood described as okay. Affect was constricted, but reactive. Mood congruent, thought process was coherent and goal directed. Still the patient has episodes of confusion. The patient adamantly denied thoughts of harming himself or others. Denied intent or plan. The patient also denied any thoughts of harming himself or others. Insight and judgment seems to be improving. Impulses are better controlled. IMPRESSION: Most likely the patient was in delirium stage due to general medical condition and stroke. At the present moment, the patient is improving. PLAN: Continue current management. Continue current medications. We will continue with the Seroquel. We will follow up and advise accordingly, so far, the patient is improving. Thank you very much for letting me participate in care of your patient. Should you have any questions, give me a call back. Lalita Floyd MD
[2018-07-29] MEDS: Budesonide 0.5 mg/2 ml Inhal Susp UD IH SCH (19:37)
--- NOTE | 2018-07-30 04:41 | PN ---
DATE: 07/29/2018 SUBJECTIVE: The patient is a 63-year-old male. The patient was seen and examined at the bedside in the evening of 07/29/2018. Looking comfortable. Sleepy, arousable. Having distress due to agitation. No fever. No chills. No hematuria or hematochezia. No headache or dizziness. No chest pain or palpitation. PHYSICAL EXAMINATION: VITAL SIGNS: Temperature 97.7, pulse 95, respiratory rate 70, blood pressure 130/80, pulse oximetry is 96. HEENT: Head normocephalic and atraumatic. Eyes PERRLA. Extraocular muscles intact. Conjunctivae clear. Nose patent. NECK: Supple. No carotid bruits. No JVD. No thyromegaly. CHEST: Bilaterally symmetrical. HEART: S1 and S2 positive. LUNGS: Clear to auscultation. ABDOMEN: Soft. Bowel sounds present. No organomegaly. EXTREMITIES: No edema. No cyanosis. NEUROLOGIC: The patient is sleepy, arousable. Follows simple commands. MEDICATIONS: Eliquis, Ecotrin, Lipitor, Pepcid, insulin, levothyroxine, Ativan, metformin, metoprolol, nicotine, Breo, Seroquel, Flomax. LABORATORY DATA: White blood cells 8.7, hemoglobin 14.1, hematocrit 43.4, platelets 224. Sodium 139, potassium 4, BUN 18, creatinine 1.1, glucose 206. ASSESSMENT AND PLAN: Mr. Sandie Lemus is a 63-year-old male with insulin-dependent diabetes mellitus type 2 with history of ischemia, cerebrovascular accident with residual speech difficulty and right-sided weakness, hypercholesterolemia, hypertension. Came with right leg numbness. MRI of the brain shows scattered acute to subacute infarct consistent with embolic source and chronic large infarction with territory of the right posterior cerebral artery. A 2-D echocardiogram shows no thrombus or vegetation and intact interatrial septum. Continue Eliquis, aspirin, physical therapy. Recommending to get the evaluation by neurologist. Seen by psychiatrist, Dr. Lalita Floyd. Sometimes, the patient is anxious. According to the psychiatrist, this is likely delirium state due to general medical condition and stroke. At this point moment, the patient is improving. Continue Seroquel. Seen by Dr. Farr, zoo caretaker. Thyroid-stimulating hormone is elevated. Dr. Farr started the patient on low-dose thyroxine. He is thinking about stress test in six to eight weeks. Bubble study of echocardiogram was negative for patent foramen ovale. For risk stratification by the zoo caretaker, suggest stress test in six to eight weeks. The symptoms will subside. In term, continue blood thinner. Need good physical therapy. We will try to do transitional care unit. Continue sleep apnea precautions. Gastrointestinal and deep venous thrombosis prophylaxis. Repeat labs. We will follow up. Penelope Bee MD MTDD
[2018-07-30] MEDS: Levothyroxine 50 MCG TAB PO SCH (05:00)
[2018-07-30] MEDS: Levalbuterol 0.63 MG/3 ML Inhal Soln UD IH SCH ×3 (07:39→20:40)
[2018-07-30] MEDS: Budesonide 0.5 mg/2 ml Inhal Susp UD IH SCH ×2 (07:39→20:40)
[2018-07-30] MEDS: Insulin Reg-LOW-Coverage SC SCH ×5 (08:43→22:51)
--- NOTE | 2018-07-30 09:26 | CP.PCM.PN ---
Subjective - Date & Time of Evaluation Date of Evaluation: 07/30/18 Time of Evaluation: 09:24 - Subjective Subjective: Neurology Progress Note: Patient seen and assessed at bedside. No acute events noted overnight. Patients son and spouse at bedside during assessment. He denies any complaints at this time and further 12 point ROS unremarkable. Objective - Vital Signs/Intake and Output Vital Signs (last 24 hours): Temp Pulse Resp BP Pulse Ox 97.6 F 81 20 118/68 95 07/30/18 06:00 07/30/18 06:00 07/30/18 06:00 07/30/18 06:00 07/30/18 06:00 - Medications Medications: Current Medications Apixaban (Eliquis) 5 mg PO BID [facility]; Protocol Last Admin: 07/29/18 18:40 Dose: 5 mg Aspirin (Ecotrin) 81 mg PO DAILY [facility] Last Admin: 07/29/18 09:45 Dose: 81 mg Atorvastatin Calcium (Lipitor) 40 mg PO DIN [facility] Last Admin: 07/29/18 18:40 Dose: 40 mg Budesonide (Pulmicort Respules) 0.5 mg IH [id number] [facility] Last Admin: 07/30/18 07:39 Dose: 0.5 mg Famotidine (Pepcid) 40 mg PO HS [facility] Last Admin: 07/29/18 21:10 Dose: 40 mg Insulin Human Regular (Humulin R Low) 0 units SC ACHS [facility]; Protocol Last Admin: 07/30/18 08:43 Dose: 3 units Levalbuterol HCl (Xopenex) 0.63 mg IH TIDRESP [facility] Last Admin: 07/30/18 07:39 Dose: 0.63 mg Levothyroxine Sodium (Synthroid) 50 mcg PO 0600 [facility] Last Admin: 07/30/18 05:00 Dose: 50 mcg Lorazepam (Ativan) 0.25 mg IVP Q6H PRN; Protocol PRN Reason: Anxiety Last Admin: 07/28/18 03:20 Dose: 0.25 mg Metformin HCl (Glucophage) 1,000 mg PO BID [facility] Last Admin: 07/29/18 18:40 Dose: 1,000 mg Metoprolol Tartrate (Lopressor) 50 mg PO BID [facility] Last Admin: 07/29/18 18:40 Dose: 50 mg Nicotine (Nicoderm Cq) 1 patch TD DAILY [facility] Last Admin: 07/29/18 09:46 Dose: 1 patch Fluticasone/Vilanterol 100/25 [ Breo Ellipta 100-25 Mcg Inh] 1 Pu 1 puff PO DAILY [facility] Last Admin: 07/29/18 12:36 Dose: Not Given Quetiapine Fumarate (Seroquel) 12.5 mg PO Q12 PRN; Protocol PRN Reason: Agitation Last Admin: 07/29/18 21:10 Dose: 12.5 mg Tamsulosin HCl (Flomax) 0.4 mg PO DAILY [facility] Last Admin: 07/29/18 09:45 Dose: 0.4 mg - Labs Labs: 07/27/18 05:00 07/27/18 05:00 PT 11.1 SECONDS (9.4-12.5) 07/26/18 12:25 INR 0.97 07/26/18 12:25 APTT 34.7 Seconds (25.1-36.5) 07/26/18 12:25 - Additional Findings Additional findings: - Constitutional Appears: Chronically Ill - Head Exam Head Exam: ATRAUMATIC, NORMOCEPHALIC - Eye Exam Eye Exam: EOMI, Normal appearance, PERRL Pupil Exam: NORMAL ACCOMODATION - Neck Exam Neck Exam: Full ROM - Respiratory Exam Respiratory Exam: Clear to Ausculation Bilateral, NORMAL BREATHING PATTERN - Cardiovascular Exam Cardiovascular Exam: REGULAR RHYTHM - GI/Abdominal Exam GI & Abdominal Exam: Soft, Normal Bowel Sounds. absent: Tenderness - Neurological Exam Neurological Exam: Awake, CN II-XII Intact, Oriented x3, Reflexes Normal. 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 Plan: -MRI Brain without contrast showed scattered acute to subacute infarcts consistent with embolic source and chronic large infarction in the territory of the right BENEFITS COORDINATOR -2D Echocardiogram showed no thrombus or vegetation and intact intra-atrial septum -Hypercoaguability workup unremarkable -Continue Eliquis 5mg PO BID -Continue ASA and Statin -Continue PT, OT and ST -Would recommend LINQ Monitor to r/o arrhythmia and SIMON evaluation -Further recommendations as per Dr. Bernstein Disposition: Patient pending placement at acute rehab. Patient seen and case discussed with attending, Dr. Bernstein. Watson Adam PGY2
[2018-07-30] MEDS: [UNRECOGNIZED DRUG - OTHER] PO SCH (10:00)
--- NOTE | 2018-07-30 11:38 | PN ---
DATE: 07/30/2018 REASON FOR CONSULTATION AND FOLLOWUP: Cardiac evaluation, admitted with stroke. SUBJECTIVE: The patient denies any chest pain, shortness of breath, any palpitation. OBJECTIVE: GENERAL: Much awake and alert, off Perry restraint. VITAL SIGNS: Temperature afebrile, heart rate of 81, blood pressure 118/68. HEENT: PERRLA. Extraocular muscles are intact. NECK: Supple. No carotid bruit or thyromegaly. CHEST: Clear to auscultation. HEART: S1 and S2 regular. ABDOMEN: Soft. EXTREMITIES: Clubbing and cyanosis negative LABORATORY DATA: Blood workup as follows: WBC 8.7, hemoglobin 14, hematocrit 43.4, and platelet count 224. Chemistry shows sodium 139, potassium 4, chloride 106, carbon dioxide 24, anion gap of 12, BUN of 18, and creatinine 1.1. TSH 5.83. IMPRESSION: A 63-year-old male with a past medical history significant for diabetes, hypertension, hyperlipidemia, history of stroke in the past, admitted with stroke. A CT scan was negative for intracerebral bleed. Brain MRIs with scattered bilateral subacute infarct changes. Patient underwent echocardiography with a bowel study, was negative for any PFO ASD dated 07/28/2018, ejection fraction 50-55%, trivial aortic regurgitation, trivial tricuspid regurgitation, trace mitral regurgitation, RV systolic pressure 15, no thrombus noted. Patient still speech slurred, not sure of the new or old. RECOMMENDATION: Continue metoprolol 50 mg twice daily, control blood pressure, patient is on Eliquis 5 p.o. twice daily, continue atorvastatin, rehab facility, telemetry remained stable. Discharge planning possibly, we will discontinue telemetry. Thank you Dr. Bee for providing us the opportunity in taking care of the patient, Sandie Lemus. Neuro note reviewed, suggested SIMON and we will schedule link in a day or 2 since the patient is on Eliquis, we will hold for 48-hours for the link. We will hold Eliquis and schedule loop recorder tomorrow. Sri Farr MD
--- NOTE | 2018-07-30 13:52 | PN ---
DATE: 07/30/2018 PULMONARY PROGRESS NOTE REFERRING PHYSICIAN: Dr. Bee. SUBJECTIVE: Patient is sitting in chair in room, family at bedside, no acute distress. No overnight events reported. No headache, rhinitis, cough, shortness of breath, chest pain, abdominal pain, nausea, vomiting, diarrhea, leg pain or leg swelling reported. OBJECTIVE GENERAL: No acute distress. VITAL SIGNS: Blood pressure 118/68, pulse 84, temperature 97.6, oxygen saturation 95% on room air. HEENT: Moist mucous membranes. Mallampati score of 4. Crowded airway. NECK: Supple. No JVD. LUNGS: Few rhonchi bilaterally. Fair airflow bilaterally. CARDIOVASCULAR: S1 and S2 audible. ABDOMEN: Soft and nontender. No distention. No organomegaly. EXTREMITIES: No bilateral lower extremity edema. NEUROLOGIC: Awake, alert, and verbal. Follows commands. MEDICATIONS: Reviewed. Eliquis 5 mg twice a day, aspirin 81 mg daily, Lipitor 40 mg at dinner, Pulmicort 0.5 mg inhalation every 12 hours, Pepcid 40 mg at bedtime, Humulin-R sliding scale a.c. at bedtime, Xopenex 0.63 mg inhalation 3 times a day, Synthroid 50 mcg daily, Ativan 0.25 mg IV push every 6 hours p.r.n., metformin 1000 mg twice a day, metoprolol tartrate 15 mg twice a day, nicotine patch transdermally daily, Seroquel 12.5 mg every 12 hours p.r.n., Flomax 0.4 mg daily. LABORATORY DATA: Reviewed. POC glucose 250. IMPRESSION AND PLAN: Previous ischemic cerebrovascular accident with residual speech difficulty, right-sided weakness, presently with right leg numbness, hypertension, hyperlipidemia, diabetes, component of chronic lung disease, suspected sleep apnea syndrome. Pulmonary point of view, continue bronchodilators, avoid sedatives, patient may need SIMON to assure no cardiac thrombus, Neurology followup, head of bed elevated 45 degrees, sleep apnea precaution, gastric prophylaxis, patient currently on anticoagulation therapy. Patient will need attended sleep study and full pulmonary function test as outpatient. The patient was seen and examined with Dr. Valdez. Discussed assessment and plan as described above. Thank you for this consult. We will follow with you. Kaleb Chambers APN Sri Valdez MD [facility] # [id number] [facility]
--- NOTE | 2018-07-30 21:55 | PN ---
DATE: 07/30/2018 SUBJECTIVE: The patient is 63-year-old. Patient was seen and examined at the bedside on 07/30/2018, looking comfortable. No fever. No chills. No hematuria. No hematochezia. Sleepy, arousable. No headache or dizziness. No chest pain. No palpitations. PHYSICAL EXAMINATION VITAL SIGNS: Temperature 97.6, pulse 81, respirations 20, blood pressure 180/60, pulse oximetry 95. HEENT: Head normocephalic, atraumatic. Eyes PERRLA. Extraocular muscles intact. Conjunctivae clear. Nose patent. Mucous membrane moist. NECK: Supple. No carotid bruit. No JVD or thyromegaly. CHEST: Bilateral symmetrical. HEART: S1 and S2 positive. LUNGS: Clear to auscultation. ABDOMEN: Soft. Bowel sounds present. No organomegaly. EXTREMITIES: No edema. No cyanosis. NEUROLOGIC: The patient is sleepy, arousable, follows simple commands. MEDICATIONS: Eliquis, Ecotrin, atorvastatin, Pulmicort capsule, Pepcid, insulin, Xopenex, levothyroxine, Ativan, metformin, metoprolol, nicotine, Seroquel. LABORATORY DATA: White blood cell 8.7, hemoglobin 14.1, hematocrit 34.4, and platelets 224. Sodium 139, potassium 4.0, BUN 18, creatinine 1.1, glucose 206. ASSESSMENT AND PLAN: Mr. Sandie Lemus is a 63-year-old male with multiple medical problems, has history of ischemia, cerebrovascular accident with residual speech difficulty, right-sided weakness, hypertension, hypercholesteremia, diabetes mellitus, came with right leg numbness. Did MRI, 2-D echo, hypercoagulable workup is unremarkable. Continue Eliquis, aspirin, statin, PT/OT, but because of Ativan, the patient is more sleepy will do PT and OT. We will discontinue Ativan. Neurologist is recommending SIMON evaluation. As per Dr. Bernstein, reviewed Dr. Farr's notes and Pulmonary and Cardiology notes. Cardiology is planning to do surgery in 1 or 2 days. They are holding Eliquis for 48 hours and we will suggest loop recorders. Gastrointestinal and deep venous thrombus prophylaxis. Repeat labs. Penelope Bee MD [facility]
[2018-07-31] MEDS: Levothyroxine 50 MCG TAB PO SCH (05:04)
[2018-07-31] MEDS ORDERED: Lidocaine 2% Inj (20ml) ONE (06:58)
[2018-07-31] MEDS: Budesonide 0.5 mg/2 ml Inhal Susp UD IH SCH ×3 (07:57→20:10)
[2018-07-31] MEDS: Levalbuterol 0.63 MG/3 ML Inhal Soln UD IH SCH ×3 (07:57→20:10)
--- NOTE | 2018-07-31 08:37 | CPOSTOP ---
DATE: 07/31/2018 CARDIOVASCULAR LAB POSTPROCEDURE NOTE PHYSICIAN: Sri Farr MD WOOD HEEL FLAP RUBBER: ENID Rivera. TYPE OF ANESTHESIA: Local lidocaine 2% and no sedation. 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 PROCEDURE PERFORMED: Implantation of loop recorder (LINQ) implant in left side of the chest. FINDINGS: Implantation of LINQ successfully. FINAL DIAGNOSIS: Cryptogenic stroke. POST PROCEDURE CONDITION: The patient's condition is stable. VASCULAR ACCESS SITE: Left side of the chest subcutaneously. CLOSURE DEVICE: Dermabond. TOTAL RADIATION DOSE: None. TOTAL FLUORO TIME: None. Sri Farr MD
--- NOTE | 2018-07-31 08:44 | CP.PCM.PN ---
Subjective - Date & Time of Evaluation Date of Evaluation: 07/31/18 Time of Evaluation: 06:30 - Subjective Subjective: Awake, calm, no distress, feels okay Reason for consultation and follow up: Cardiac evaluation, admitted for stroke, history of hypertension, diabetes, hyperlipidemia. seen and examined by me and Dr. Farr Objective - Vital Signs/Intake and Output Vital Signs (last 24 hours): Temp Pulse Resp BP Pulse Ox 97.6 F 74 19 127/76 97 07/31/18 06:00 07/31/18 06:00 07/31/18 06:00 07/31/18 06:00 07/31/18 06:00 Intake and Output: 07/31/18 07/31/18 06:59 18:59 Intake Total 120 Output Total 1 Balance 119 - Medications Medications: Current Medications Apixaban (Eliquis) 5 mg PO BID [facility]; Protocol Aspirin (Ecotrin) 81 mg PO DAILY [facility] Last Admin: 07/30/18 10:16 Dose: 81 mg Atorvastatin Calcium (Lipitor) 40 mg PO DIN [facility] Last Admin: 07/30/18 17:46 Dose: 40 mg Budesonide (Pulmicort Respules) 0.5 mg IH [id number] [facility] Last Admin: 07/31/18 07:57 Dose: Not Given Famotidine (Pepcid) 40 mg PO HS [facility] Last Admin: 07/30/18 22:51 Dose: Not Given Insulin Human Regular (Humulin R Low) 0 units SC ACHS [facility]; Protocol Last Admin: 07/30/18 22:51 Dose: Not Given Levalbuterol HCl (Xopenex) 0.63 mg IH TIDRESP [facility] Last Admin: 07/31/18 07:57 Dose: Not Given Levothyroxine Sodium (Synthroid) 50 mcg PO 0600 [facility] Last Admin: 07/31/18 05:04 Dose: 50 mcg Lorazepam (Ativan) 0.25 mg IVP ONCE PRN; Protocol PRN Reason: Anxiety Metformin HCl (Glucophage) 1,000 mg PO BID [facility] Last Admin: 07/30/18 17:51 Dose: 1,000 mg Metoprolol Tartrate (Lopressor) 50 mg PO BID [facility] Last Admin: 07/30/18 17:52 Dose: 50 mg Nicotine (Nicoderm Cq) 1 patch TD DAILY [facility] Last Admin: 07/30/18 10:16 Dose: 1 patch Fluticasone/Vilanterol 100/25 [ Breo Ellipta 100-25 Mcg Inh] 1 Pu 1 puff PO DAILY [facility] Last Admin: 07/30/18 10:00 Dose: Not Given Quetiapine Fumarate (Seroquel) 12.5 mg PO Q12 PRN; Protocol PRN Reason: Agitation Last Admin: 07/29/18 21:10 Dose: 12.5 mg Tamsulosin HCl (Flomax) 0.4 mg PO DAILY [facility] Last Admin: 07/30/18 10:13 Dose: 0.4 mg - Labs Labs: 07/27/18 05:00 07/27/18 05:00 PT 11.1 SECONDS (9.4-12.5) 07/26/18 12:25 INR 0.97 07/26/18 12:25 APTT 34.7 Seconds (25.1-36.5) 07/26/18 12:25 - Constitutional Appears: Non-toxic, No Acute Distress - Head Exam Head Exam: NORMAL INSPECTION, NORMOCEPHALIC - Eye Exam Eye Exam: Normal appearance Pupil Exam: NORMAL ACCOMODATION - ENT Exam ENT Exam: Mucous Membranes Moist, Normal Exam - Respiratory Exam Respiratory Exam: Clear to Ausculation Bilateral, NORMAL BREATHING PATTERN - Cardiovascular Exam Cardiovascular Exam: REGULAR RHYTHM, +S1, +S2 Additional comments: Telemetry NSR with occasional PVC's 70's - GI/Abdominal Exam GI & Abdominal Exam: Soft, Normal Bowel Sounds - Extremities Exam Extremities Exam: Full ROM, Normal Capillary Refill - Neurological Exam Neurological Exam: Alert, Awake - Psychiatric Exam Psychiatric exam: Normal Affect, Normal Mood - Skin Skin Exam: Dry, Normal Color, Warm Assessment and Plan - Assessment and Plan (Free Text) Assessment: A 63 year old male who came to the ER due to numbness and weakness of his right leg. History of stroke 3 1/2 years ago, on Plavix and Aspirin.hypertension, and diabetes, hypothyroidism. CT of head negative for bleeding. MRI of brain showed scattered bilateral subacute infarct changes. ECHO done with bubble study, No PFO, no ASD, [id number]%, trivial AR/TR, trace MR, RVSP 15 mmHg. lFor loop recorder today. Plan: For loop recorder today No distress Stable heart rate Stable blood pressure Will discontinue telemetry On ASA 81 mg daily, Lipitor 40 mg daily,Synthroid 50 mcg daily, Lopressor 50 mg BID, Nicoderm patch,Flomax 0.4 mg daily Eliquis 5 mg BID to start tomorrow (after loop recorder insertion) Continue current treatment Continue current medications Will follow up Plan and treatment discussed with Dr. Farr
--- NOTE | 2018-07-31 09:16 | CARDCATH ---
PROCEDURE DATE: 07/31/2018 TYPE OF PROCEDURE: Cardiac fish hatchery laborer procedure. PROCEDURE PERFORMED: Implantation of loop recorder. SCHEDULING: Semielective. SECONDARY SOCIAL STUDIES TEACHER: Dr Radha Farr. TREATING ENGINEER HELPER: Lionel Aponte. INDICATION FOR THE PROCEDURE: 1. Cryptogenic stroke. 2. Rule out paroxysmal atrial fibrillation. BRIEF CLINICAL HISTORY: This is a 63-year-old male with diabetes, hypertension, hyperlipidemia, active tobacco abuse came in with recurrent stroke. The patient had 4 year and half ago stroke in past, found the patient become slurred speech and gradually recovered. At this time, the patient came in with acute stroke. MRI shows multiple areas of cerebellum involved, possible cryptogenic stroke, possible rule out paroxysmal atrial fibrillation. Echo done with bowel study, no evidence of atrial septal defect noted by color flow and bowel study, so it was recommended by neurologist for implantation for loop record, rule out any paroxysmal atrial fibrillation, arrhythmia. PROCEDURE PERFORMED: Implantation of loop recorder. The patient was brought to the fish hatchery laborer, prepped and draped in standard sterile fashion. Left side of the chest was prepared, 2% lidocaine given at the fourth intercostal space 1.5 cm away from the midsternal line. Then, using [employer] BP knife #[id number], a small incision was done and pocket was made and the LINK from [employer] loop recorder injected and the puncture site was closed with a Dermabond. The patient tolerated the procedure well. Returned to the floor in stable condition. Arrangement has been made for the transtelephonic followup with Dr. Angelica Garcia's office and education was given to the patient's . We will follow with you. Thank you Dr. Bee, for providing the opportunity to taking care of patient, Mariah Hooper. Sri Farr MD
--- NOTE | 2018-07-31 11:38 | PN ---
DATE: 07/31/2018 REFERRING PHYSICIAN: Dr. Penelope Bee. SUBJECTIVE: The patient is sitting up in bed with family at bedside, no acute distress. No overnight events reported. The patient underwent implantation of loop recorder this morning. No headache, rhinitis, cough, shortness of breath, chest pain, abdominal pain, nausea, vomiting, diarrhea, leg pain or leg swelling reported. PHYSICAL EXAMINATION: GENERAL: No acute distress. VITAL SIGNS: Blood pressure 127/76, pulse 74, temperature 97.6, and oxygen saturation 97% on room air. HEENT: Moist mucous membranes. Mallampati score of 4. Crowded airway. NECK: Supple. No JVD. LUNGS: Fair airflow bilaterally CARDIOVASCULAR: S1 and S2 audible. Dressing to sternal area. ABDOMEN: Soft, nontender. No distention. No organomegaly. EXTREMITIES: No bilateral lower extremity edema. NEUROLOGICAL: Awake, alert and verbal. Follows commands. MEDICATIONS: Reviewed. Eliquis 5 mg twice a day, aspirin 81 mg daily, Lipitor 40 mg at dinner, Pulmicort 0.5 mg inhalation every 12 hours, Pepcid 40 mg at bedtime, Humulin-R sliding scale before meals and at bedtime, Xopenex 0.63 mg one inhalation 3 times a day, Synthroid 50 mcg daily, Ativan 0.25 mg IV push once p.r.n., Glucophage 1000 mg twice a day, metoprolol tartrate 15 mg twice a day, nicotine patch transdermally daily, Seroquel 12.5 mg every 12 hours p.r.n., Flomax 0.4 mg p.o. daily. LABORATORY DATA: Reviewed. POC glucose 193. ASSESSMENT AND PLAN: Previous ischemic cerebrovascular accident with residual speech difficulty, right-sided weakness present with right leg numbness, hypertension, hyperlipidemia, diabetes, component of chronic lung disease, suspected sleep apnea syndrome. Pulmonary point of view, continue bronchodilators, avoid sedatives. Cardiology followup. Neurology followup. Sleep apnea precautions. Head of bed elevated at 45 degrees, gastric prophylaxis, patient currently on anticoagulation therapy. We believe patient would benefit from rehab once cleared from acute care. The patient will need attended sleep study and full pulmonary test as outpatient. The patient was seen and examined with Dr. Valdez. Discussed assessment and plan as described above. Thank you for this consult. We will follow with you. Kaleb Chambers APN Sri Valdez MD
[2018-07-31] MEDS: Insulin Reg-LOW-Coverage SC SCH ×3 (12:28→22:45)
--- NOTE | 2018-07-31 19:14 | PN ---
DATE: 07/31/2018 SUBJECTIVE: This patient was seen today. The patient is alert. The patient is not agitated. The patient has some improvement with his presentation shortly. The patient was admitted to the medical site for a new stroke and the patient at the beginning was agitated, restless and confused. So far, the patient is improving. No agitation, no aggression. Last dose of Seroquel was on 07/29/2018, today is 24th. The patient has fair appetite. No behavioral issues. LABORATORY DATA: Reviewed. MEDICATIONS: Reviewed. VITAL SIGNS: Reviewed. MENTAL STATUS EXAM: The patient is pleasant, cooperative, intermittent eye contact. Speech was normal rate, but the patient has some dysarthria and had an accent. Mood described as okay. Affect was bright. Thought process concrete. Thought content, the patient denied any visual, auditory, tactile hallucinations. Denied paranoid ideation. The patient denied thoughts of harming himself or others. Denied intent or plan. Insight and judgment seems to be improving. Impulses are well controlled. IMPRESSION: The patient was confused due to new stroke and delirium state, which is improving. PLAN: Continue current management. Continue current medication. This data analyst report writer had discontinued Seroquel because for the past 2 days, the patient was not taking anything. Subacute rehab up to medical and physical therapy team. Family involvement. The patient posed no imminent danger to self or others. We will sign off. Should you have any questions give me a call back. Lalita Floyd MD
--- NOTE | 2018-07-31 22:24 | PN ---
DATE: 07/31/2018 SUBJECTIVE: The patient is 63-year-old male. The patient was seen and examined at the bedside, looking comfortable. No fever. No chills. No hematuria. No hematochezia. No swelling of the legs. No chest pain. No palpitations. No headache. No dizziness. PHYSICAL EXAMINATION: VITAL SIGNS: Blood pressure 130/70, pulse 80, temperature 97.5, oxygenation saturation 97% on room air. HEENT: Head is normocephalic and atraumatic. Eyes, PERRLA. Extraocular muscles are intact. Conjunctivae clear. Nose patent. Mucous membranes moist. NECK: Supple. No carotid bruits. No JVD or thyromegaly. CHEST: Bilaterally symmetrical. HEART: S1 and S2 positive. LUNGS: Clear to auscultation. ABDOMEN: Soft. Bowel sounds present. No organomegaly. EXTREMITIES: No edema. No cyanosis. NEUROLOGIC: The patient is awake, alert. Follows simple commands. LABORATORY DATA: We do not have labs today, but reviewed old labs. Sugar 183. MEDICATIONS: Eliquis, aspirin, Lipitor, Pulmicort, insulin, Xopenex, Synthroid, Ativan, Glucophage, metoprolol, nicotine, Flomax. ASSESSMENT AND PLAN: Mr. Sandie Lemus is a 63-year-old male with multiple medical problems, history of stroke, and has new stroke on that, right-sided weakness with right leg numbness, hypertension, hypercholesterolemia, diabetes mellitus, chronic obstructive pulmonary disease, actively smoking, sleep apnea syndrome. Discussion done with physical therapy to get good physical therapy, bronchodilators, avoid sedation. Cardiology followup. We will discuss with the patient for rehab. Seen by Dr. Lalita Floyd for depression and agitation. Dr. Farr did catheterization. Actually, he put the loop recorder. Gastrointestinal and deep venous thrombosis prophylaxis. Repeat labs. We will follow up. Penelope Bee MD
[2018-08-01] MEDS: Levothyroxine 50 MCG TAB PO SCH (06:13)
--- NOTE | 2018-08-01 07:07 | CP.PCM.PN ---
Subjective - Date & Time of Evaluation Date of Evaluation: 08/01/18 Time of Evaluation: 06:15 - Subjective Subjective: Awake, no distress, feels okay Reason for consultation and follow up: Cardiac evaluation, admitted for stroke, history of hypertension, diabetes, hyperlipidemia.status post insertion of loop recorder Seen and examined by me and Dr. Farr Objective - Vital Signs/Intake and Output Vital Signs (last 24 hours): Temp Pulse Resp BP Pulse Ox 98.4 F 80 20 115/72 95 07/31/18 19:14 07/31/18 19:14 07/31/18 19:14 07/31/18 19:14 07/31/18 19:14 Intake and Output: 08/01/18 08/01/18 06:59 18:59 Output Total 725 Balance -725 - Medications Medications: Current Medications Apixaban (Eliquis) 5 mg PO BID [facility]; Protocol Aspirin (Ecotrin) 81 mg PO DAILY [facility] Last Admin: 07/31/18 10:00 Dose: 81 mg Atorvastatin Calcium (Lipitor) 40 mg PO DIN [facility] Last Admin: 07/31/18 17:48 Dose: 40 mg Budesonide (Pulmicort Respules) 0.5 mg IH [id number] [facility] Last Admin: 07/31/18 13:38 Dose: 0.5 mg Famotidine (Pepcid) 40 mg PO HS [facility] Last Admin: 07/31/18 23:08 Dose: 40 mg Insulin Human Regular (Humulin R Low) 0 units SC ACHS [facility]; Protocol Last Admin: 07/31/18 22:45 Dose: Not Given Levalbuterol HCl (Xopenex) 0.63 mg IH TIDRESP [facility] Last Admin: 07/31/18 13:38 Dose: 0.63 mg Levothyroxine Sodium (Synthroid) 50 mcg PO 0600 [facility] Last Admin: 08/01/18 06:13 Dose: 50 mcg Lorazepam (Ativan) 0.25 mg IVP ONCE PRN; Protocol PRN Reason: Anxiety Metformin HCl (Glucophage) 1,000 mg PO BID [facility] Last Admin: 07/31/18 17:48 Dose: 1,000 mg Metoprolol Tartrate (Lopressor) 50 mg PO BID [facility] Last Admin: 07/31/18 17:47 Dose: 50 mg Nicotine (Nicoderm Cq) 1 patch TD DAILY [facility] Last Admin: 07/31/18 09:59 Dose: 1 patch Fluticasone/Vilanterol 100/25 [ Breo Ellipta 100-25 Mcg Inh] 1 Pu 1 puff PO DAILY [facility] Last Admin: 07/30/18 10:00 Dose: Not Given Tamsulosin HCl (Flomax) 0.4 mg PO DAILY [facility] Last Admin: 07/31/18 10:00 Dose: 0.4 mg - Labs Labs: 07/27/18 05:00 07/27/18 05:00 PT 11.1 SECONDS (9.4-12.5) 07/26/18 12:25 INR 0.97 07/26/18 12:25 APTT 34.7 Seconds (25.1-36.5) 07/26/18 12:25 - Constitutional Appears: Non-toxic, No Acute Distress - Head Exam Head Exam: NORMAL INSPECTION, NORMOCEPHALIC - Eye Exam Eye Exam: Normal appearance Pupil Exam: NORMAL ACCOMODATION - ENT Exam ENT Exam: Mucous Membranes Moist, Normal Exam - Respiratory Exam Respiratory Exam: Clear to Ausculation Bilateral, NORMAL BREATHING PATTERN - Cardiovascular Exam Cardiovascular Exam: +S1, +S2 Additional comments: left chest dressing Loop recorder - GI/Abdominal Exam GI & Abdominal Exam: Soft, Normal Bowel Sounds - Neurological Exam Neurological Exam: Alert, Awake - Psychiatric Exam Psychiatric exam: Normal Affect, Normal Mood - Skin Skin Exam: Dry, Normal Color, Warm Assessment and Plan - Assessment and Plan (Free Text) Assessment: A 63 year old male who came to the ER due to numbness and weakness of his right leg. History of stroke 3 1/2 years ago, on Plavix and Aspirin.hypertension, and diabetes, hypothyroidism. CT of head negative for bleeding. MRI of brain showed scattered bilateral subacute infarct changes. ECHO done with bubble study, No PFO, no ASD, [id number]%, trivial AR/TR, trace MR, RVSP 15 mmHg. Status post inse rtion of loop recorder yesterday.Family educated on loop recorder.Cardiac status stable. Physical therapy. Psych on consult for depression. Plan: Post insertion of loop recorder yesterday Site no bleeding, no hematoma No distress Stable heart rate Stable blood pressure On ASA 81 mg daily, Lipitor 40 mg daily,Synthroid 50 mcg daily, Lopressor 50 mg BID, Nicoderm patch,Flomax 0.4 mg daily Eliquis 5 mg BID Continue current treatment Continue current medications Physical therapy Discharge planning Will follow up Plan and treatment discussed with Dr. Farr
[2018-08-01 07:23] LABS: BASO # 0.04 K/mm3 (0.0-2.0); BASO % 0.5 % (0.0-3.0); EOS # 0.5 (0.0-0.7); EOS % 5.6 % (1.5-5.0); GRAN # 4.03 (1.4-6.5); GRAN % 48.3 % (50.0-68.0); HEMOGLOBIN 13.9 g/dL (14.0-18.0); LYMPH # 3.2 (1.2-3.4); LYMPH % 37.8 % (22.0-35.0); MEAN CORPUSCULAR HEMOGLOBIN 27.4 pg (25.0-35.0); MEAN CORPUSCULAR HGB CONC 32.2 g/dl (31.0-37.0); MEAN PLATELET VOLUME 10.8 fl (7.0-11.0); MONO # 0.7 (0.1-0.6); MONO % 7.8 % (1.0-6.0); RBC 5.08 10^6/uL (3.5-6.1); RED CELL DISTRIBUTION WIDTH 13.5 % (11.5-14.5); WHITE BLOOD COUNT 8.3 10^3/uL (4.5-11.0)
[2018-08-01] MEDS: Levalbuterol 0.63 MG/3 ML Inhal Soln UD IH SCH ×3 (07:41→19:23)
[2018-08-01] MEDS: Budesonide 0.5 mg/2 ml Inhal Susp UD IH SCH ×2 (07:41→19:22)
[2018-08-01 07:51] LABS: BLOOD UREA NITROGEN 32 mg/dL (7-21); CALCIUM 9.7 mg/dL (8.4-10.5); GFR NON-AFRICAN AMERICAN 51
[2018-08-01] MEDS: Insulin Reg-LOW-Coverage SC SCH ×4 (08:56→22:49)
[2018-08-01] MEDS: [UNRECOGNIZED DRUG - OTHER] PO SCH (09:19)
--- NOTE | 2018-08-01 10:55 | PN ---
DATE: 08/01/2018 PULMONARY PROGRESS NOTE REFERRING PHYSICIAN: Penelope Bee MD SUBJECTIVE: The patient is sitting at bedside. No acute distress. No overnight events reported. The patient reports feeling well today. No headache, rhinitis, cough, shortness of breath, chest pain, abdominal pain, nausea, vomiting, diarrhea, leg pain or leg swelling reported. OBJECTIVE GENERAL: No acute distress. VITAL SIGNS: Blood pressure 130/80, pulse 82, temperature 98.1, and oxygen saturation 98% on room air. HEENT: Moist mucous membranes. Mallampati score of 4. Crowded airway. NECK: Supple. No JVD. LUNGS: Fair airflow bilaterally. CARDIOVASCULAR: S1 and S2 audible. Dressing to sternal area. ABDOMEN: Soft and nontender. No distention. No organomegaly. EXTREMITIES: No bilateral lower extremity edema. NEUROLOGICAL: Awake, alert and verbal. Follows commands. MEDICATIONS: Reviewed. Eliquis 5 mg twice a day, aspirin 81 mg daily, Lipitor 40 mg at dinner, Pulmicort 0.5 mg every 12 hours, Pepcid 40 mg at bedtime, Humulin-R sliding scale a.c. and at bedtime, Xopenex 0.63 mg 3 times a day, Synthroid 50 mcg daily, Ativan 0.25 mg IV push p.r.n. one time dose, Glucophage 1000 mg twice a day, metoprolol tartrate 50 mg twice a day, nicotine patch transdermally daily and Flomax 0.4 mg daily. LABORATORY DATA: Reviewed. WBC 8.3, RBC 5.08, hemoglobin 13.9, hematocrit 43.2, and platelets 234. Sodium 139, potassium 4.1, chloride 105, carbon dioxide 24, anion gap 13, BUN 32, creatinine 1.4, GFR 51, POC glucose 225, random glucose 215, calcium 9.7, phosphorus 3.4 and magnesium 1.5. IMPRESSION AND PLAN: Previous ischemic cerebrovascular accident with residual speech difficulty, right-sided weakness with right leg numbness, hypertension, hyperlipidemia, diabetes, component of chronic lung disease, suspected sleep apnea syndrome. Continue bronchodilators, sleep apnea precautions, head of bed elevated at 45 degrees, avoid sedatives, gastric prophylaxis. The patient is currently on anticoagulation therapy. the patient will benefit from rehab. Once cleared from acute care, the patient will need attended sleep study and full pulmonary function test as outpatient. This patient was seen and examined with Dr. Valdez. Discussed assessment and plan as described above. Thank you for this consult and we will follow with you. Kaleb Chambers APN Sri Valdez MD
--- NOTE | 2018-08-01 11:26 | PN ---
DATE: 08/01/2018 REASON FOR CONSULTATION: Followup, cardiac evaluation admitted with stroke, history of hypertension, diabetes, status post loop recorder implantation. This note is in addition to dictated by nurse practitioner, Daniela Yao. Arrangement has made for followup loop recorder, information given to the and explained for monitoring the loop recorder. The patient had echo done and there was no evidence of atrial septal defect, no ASD. Continue Eliquis. Continue Synthroid. Continue Lipitor, possible discharge him today. Sri Farr MD
--- NOTE | 2018-08-02 03:39 | PN ---
DATE: 08/01/2018 SUBJECTIVE: The patient is a 63-year-old male. The patient was seen and examined at bedside on 08/01/2018. Looking comfortable. Getting physical therapy. No fever. No chills. No hematuria. No hematochezia. No headache. No dizziness. No chest pain. No palpitation. PHYSICAL EXAMINATION: VITAL SIGNS: Blood pressure 130/80, pulse 62, respiratory rate 18, temperature 98.1. HEENT: Head: Normocephalic and atraumatic. Eyes: PERRLA. Extraocular muscles intact. Conjunctivae clear. Nose patent. NECK: Supple. No carotid bruits. No JVD or thyromegaly. CHEST: Bilaterally symmetrical. LUNGS: Fair airflow bilaterally. CARDIOVASCULAR: S1 and S2 are positive. ABDOMEN: Soft. Bowel sounds present. No organomegaly. EXTREMITIES: No edema. No cyanosis. NEUROLOGIC: The patient is awake and alert. Follows simple commands. Oriented x3. MEDICATIONS: Eliquis, Lipitor, Pulmicort, Pepcid, insulin sliding scale, Synthroid, Ativan, Glucophage, metoprolol, NicoDerm patch, and Flomax. LABORATORY DATA: White blood cells 8.3, hemoglobin 13.9, hematocrit 43.2, platelets 234. Sodium 139, potassium 4.1, BUN 32, creatinine 1.4, GFR 51, glucose 225. ASSESSMENT AND PLAN: Mr. Sandie Lemus is a 63-year-old male with previous ischemic cerebrovascular accident, residual speech difficulty and extremity difficulty, now has right-sided weakness with right leg numbness; history of hypertension; insulin-dependent diabetes mellitus, not very well controlled; hypercholesteremia; chronic lung disease; obstructive sleep apnea syndrome. Continue bronchodilators with sleep apnea precautions. Head elevated up to 45 degrees. Avoid sedatives. Gastric and deep venous thrombosis prophylaxis. The patient will benefit from rehabilitation. getting physical therapy , The patient had an echocardiography done also. Continue present treatment. Repeat laboratories. We will follow up. Penelope Bee MD [facility]
[2018-08-02] MEDS: Levothyroxine 50 MCG TAB PO SCH (05:18)
--- NOTE | 2018-08-02 07:28 | CP.PCM.PN ---
Subjective - Date & Time of Evaluation Date of Evaluation: 08/02/18 Time of Evaluation: 06:55 - Subjective Subjective: Lying in bed, no distress, awake, Reason for consultation and follow up: Cardiac evaluation, admitted for stroke, history of hypertension, diabetes, hyperlipidemia.status post insertion of loop recorder Seen and examined by me and Dr. Farr Objective - Vital Signs/Intake and Output Vital Signs (last 24 hours): Temp Pulse Resp BP Pulse Ox 99.3 F 120 H 18 129/85 98 08/01/18 18:00 08/01/18 18:00 08/01/18 18:00 08/01/18 18:00 08/01/18 18:00 Intake and Output: 08/02/18 08/02/18 06:59 18:59 Intake Total 1260 240 Balance 1260 240 - Medications Medications: Current Medications Apixaban (Eliquis) 5 mg PO BID [facility]; Protocol Aspirin (Ecotrin) 81 mg PO DAILY [facility] Last Admin: 08/01/18 09:18 Dose: 81 mg Atorvastatin Calcium (Lipitor) 40 mg PO DIN [facility] Last Admin: 08/01/18 17:12 Dose: 40 mg Budesonide (Pulmicort Respules) 0.5 mg IH [id number] [facility] Last Admin: 08/01/18 19:22 Dose: Not Given Famotidine (Pepcid) 40 mg PO HS [facility] Last Admin: 08/01/18 22:22 Dose: 40 mg Insulin Human Regular (Humulin R Low) 0 units SC ACHS [facility]; Protocol Last Admin: 08/01/18 22:49 Dose: Not Given Levalbuterol HCl (Xopenex) 0.63 mg IH TIDRESP [facility] Last Admin: 08/01/18 19:23 Dose: Not Given Levothyroxine Sodium (Synthroid) 50 mcg PO 0600 [facility] Last Admin: 08/02/18 05:18 Dose: 50 mcg Lorazepam (Ativan) 0.25 mg IVP ONCE PRN; Protocol PRN Reason: Anxiety Metformin HCl (Glucophage) 1,000 mg PO BID [facility] Last Admin: 08/01/18 17:12 Dose: 1,000 mg Metoprolol Tartrate (Lopressor) 50 mg PO BID [facility] Last Admin: 08/01/18 17:12 Dose: 50 mg Nicotine (Nicoderm Cq) 1 patch TD DAILY [facility] Last Admin: 08/01/18 09:18 Dose: 1 patch Fluticasone/Vilanterol 100/25 [ Breo Ellipta 100-25 Mcg Inh] 1 Pu 1 puff PO DAILY [facility] Last Admin: 08/01/18 09:19 Dose: Not Given Tamsulosin HCl (Flomax) 0.4 mg PO DAILY [facility] Last Admin: 08/01/18 09:18 Dose: 0.4 mg - Labs Labs: 08/01/18 07:00 08/01/18 07:00 PT 11.1 SECONDS (9.4-12.5) 07/26/18 12:25 INR 0.97 07/26/18 12:25 APTT 34.7 Seconds (25.1-36.5) 07/26/18 12:25 - Constitutional Appears: Non-toxic, No Acute Distress - Head Exam Head Exam: NORMAL INSPECTION, NORMOCEPHALIC - Eye Exam Eye Exam: Normal appearance Pupil Exam: NORMAL ACCOMODATION - ENT Exam ENT Exam: Mucous Membranes Moist - Respiratory Exam Respiratory Exam: Clear to Ausculation Bilateral, NORMAL BREATHING PATTERN - Cardiovascular Exam Cardiovascular Exam: +S1, +S2 Additional comments: loop recorder left chest - GI/Abdominal Exam GI & Abdominal Exam: Soft, Normal Bowel Sounds - Extremities Exam Extremities Exam: Full ROM, Normal Capillary Refill - Neurological Exam Neurological Exam: Alert, Awake - Psychiatric Exam Psychiatric exam: Normal Affect, Normal Mood - Skin Skin Exam: Dry, Normal Color, Warm Assessment and Plan - Assessment and Plan (Free Text) Assessment: A 63 year old male who came to the ER due to numbness and weakness of his right leg. History of stroke 3 1/2 years ago, on Plavix and Aspirin.hypertension, and diabetes, hypothyroidism. CT of head negative for bleeding. MRI of brain showed scattered bilateral subacute infarct changes. ECHO done with bubble study, No PFO, no ASD, [id number]%, trivial AR/TR, trace MR, RVSP 15 mmHg. Status post insertion of loop recorder .Family educated on loop recorder.Cardiac status stable. Physical therapy. Psych on consult for depression. Cardiac status stable. Plan: No distress Post insertion of loop recorder Stable heart rate Stable blood pressure On ASA 81 mg daily, Lipitor 40 mg daily,Synthroid 50 mcg daily, Lopressor 50 mg BID, Nicoderm patch,Flomax 0.4 mg daily Eliquis 5 mg BID Continue current treatment Continue current medications Physical therapy Cleared from cardiac standpoint for discharge Possible discharge today to [facility] rehab Will follow up Plan and treatment discussed with Dr. Farr
[2018-08-02] MEDS: Budesonide 0.5 mg/2 ml Inhal Susp UD IH SCH (07:49)
[2018-08-02] MEDS: Levalbuterol 0.63 MG/3 ML Inhal Soln UD IH SCH (07:49)
[2018-08-02] MEDS: Insulin Reg-LOW-Coverage SC SCH ×2 (08:17→11:27)
[2018-08-02 08:26] VITALS: BP 125/72; PULSE 74; RESP 20; TEMP 97.6; O2SAT 96
[2018-08-02] MEDS: [UNRECOGNIZED DRUG - OTHER] PO SCH (09:14)
--- NOTE | 2018-08-02 09:18 | PN ---
DATE: 08/02/2018 PULMONARY PROGRESS NOTE REFERRING PHYSICIAN: Penelope Bee MD SUBJECTIVE: Patient is sitting on the bed, no acute distress, no overnight events reported, reports feeling well today. No headache, rhinitis, cough, shortness of breath, chest pain, abdominal pain, nausea, vomiting, diarrhea, leg pain, or leg swelling reported. OBJECTIVE: GENERAL: No acute distress. VITAL SIGNS: Blood pressure 125/72, pulse 74, temperature 97.6, oxygen saturation 96% on room air. HEENT: Moist mucous membranes. Crowded airway. Mallampati score of 4. NECK: Supple. No JVD. LUNGS: Fair airflow bilaterally. CARDIOVASCULAR: S1 and S2 audible. ABDOMEN: Soft and nontender. No distention. No organomegaly. EXTREMITIES: No bilateral lower extremity edema. NEUROLOGIC: Awake, alert, and verbal. Follows commands. MEDICATIONS: Reviewed; Apixaban 5 mg twice a day, aspirin 81 mg daily, Lipitor 40 mg at dinner, Pulmicort 2.5 mg every 12 hours, Pepcid 40 mg at nighttime, Humulin-R sliding scale a.c. at bedtime, Xopenex 0.63 mg inhalation 3 times a day, Synthroid 50 mcg daily, metformin 1000 mg p.o. twice a day, metoprolol tartrate 50 mg twice a day, nicotine patch transdermally daily, Flomax 0.4 mg p.o. daily. LABORATORY DATA: Reviewed. POC glucose 225. IMPRESSION AND PLAN: Previous ischemic cerebrovascular accident with residual speech difficulty, right-sided weakness and right leg numbness, hypertension, hyperlipidemia, diabetes, component of chronic lung disease, suspected sleep apnea syndrome, sleep apnea precaution, head of bed elevated 25 degrees, avoid sedatives, gastric prophylaxis. Patient currently on anticoagulation therapy, continue bronchodilators. Fall precaution. Patient will need attended sleep study and full pulmonary function test as outpatient. Patient would benefit from rehab after being cleared from acute care. This patient was seen and examined with Dr. Valdez. Discussed assessment and plan as described above. Thank you for this consult. We will follow with you. Kaleb Prudence, [employer] Sri Valdez MD [facility] # [id number] [facility]
[2018-08-02] MEDS ORDERED: Magnesium Sulfate 2 gm/50 ml 2 GM/50 ML BAG IVPB ONE (09:40)
[2018-08-02 11:23] LABS: BASO # 0.06 K/mm3 (0.0-2.0); BASO % 0.7 % (0.0-3.0); EOS # 0.4 (0.0-0.7); HEMOGLOBIN 14.2 g/dL (14.0-18.0); LYMPH # 2.7 (1.2-3.4); LYMPH % 30.5 % (22.0-35.0); MEAN CELL VOLUME 85.6 fl (80.0-105.0); MEAN CORPUSCULAR HGB CONC 32.7 g/dl (31.0-37.0); MEAN PLATELET VOLUME 10.7 fl (7.0-11.0); MONO # 0.5 (0.1-0.6); MONO % 6.1 % (1.0-6.0); RBC 5.07 10^6/uL (3.5-6.1); RED CELL DISTRIBUTION WIDTH 13.6 % (11.5-14.5); WHITE BLOOD COUNT 8.9 10^3/uL (4.5-11.0)
[2018-08-02 11:50] LABS: BLOOD UREA NITROGEN 30 mg/dL (7-21)
[2018-08-02 11:51] LABS: ALB/GLOB RATIO 1.6 (1.1-1.8); ALBUMIN 4.5 g/dL (3.0-4.8); ALT/SGPT 28 U/L (7-56); AST/SGOT 18 U/L (17-59); CALCIUM 10.2 mg/dL (8.4-10.5); GFR NON-AFRICAN AMERICAN 51
== END 2018-08-02 13:26 | DRG 41 ==
LOC: ED 11:21 → ERH 13:17 → 2RNO 15:33 → 3RNO 07-31 19:08
PROVIDERS: ADMIT Internal Medicine; ATTEND Internal Medicine
PROC: 0JH632Z Insertion of Monitoring Device into Chest Subcutaneous Tissue and Fascia, Percutaneous Approach (ICD-10-PCS; principal; 2018-07-31)
DX: I63.40 Cerebral infarction due to embolism of unspecified cerebral artery (principal); I69.351 Hemiplegia and hemiparesis following cerebral infarction affecting right dominant side; F05 Delirium due to known physiological condition; I10 Essential (primary) hypertension; E11.65 Type 2 diabetes mellitus with hyperglycemia; E11.51 Type 2 diabetes mellitus with diabetic peripheral angiopathy without gangrene; E03.9 Hypothyroidism, unspecified; F17.210 Nicotine dependence, cigarettes, uncomplicated; E78.5 Hyperlipidemia, unspecified; E78.1 Pure hyperglyceridemia; E78.00 Pure hypercholesterolemia, unspecified; J44.9 Chronic obstructive pulmonary disease, unspecified; R13.10 Dysphagia, unspecified; F32.9 Major depressive disorder, single episode, unspecified; G47.30 Sleep apnea, unspecified; R29.702 NIHSS score 2; Z78.1 Physical restraint status; Z79.84 Long term (current) use of oral hypoglycemic drugs; I69.322 Dysarthria following cerebral infarction

== ENCOUNTER 2018-09-15 10:02 | Outpatient (CLI) | payer MEDICARE, OTHER | END 2018-09-15 10:03 | disposition home or self-care (01) | LOC: RAD 10:02 ==